=== PATIENT | female | born 1940 | race Caucasian/White ===

== ENCOUNTER 2019-01-25 21:40 | Outpatient (REF) | payer BC, SELFPAY ==
[2019-01-25 22:28] LABS: Anion Gap 11.2 mmol/L (3-11); BUN 15 mg/dL (7-18); CO2 27.8 mmol/L (21.0-32.0); CREATININE 0.66 mg/dL (0.55-1.02); Calcium 9.6 mg/dL (8.5-10.1); Chloride 105 mmol/L (98-107); Glucose 86 mg/dL (70-100); Potassium 4.4 mmol/L (3.5-5.1); Sodium 144 mmol/L (136-145)
== END 2019-01-25 22:00 ==
LOC: NCHCN 21:40
PROVIDERS: PCP Family Medicine; Visit Provider Family Medicine
DX: I10 Essential (primary) hypertension (principal)
CPT/HCPCS: 80048

== ENCOUNTER 2019-01-26 12:57 | Outpatient (REF) | payer BC, SELFPAY | END 2019-01-26 13:17 | LOC: NCHCN 12:57 | PROVIDERS: PCP Family Medicine; Visit Provider Family Medicine | DX: R69 Illness, unspecified (principal) ==

== ENCOUNTER 2019-04-01 15:25 | Outpatient (REF) | payer BC, SELFPAY | END 2019-04-01 15:45 | LOC: NCHCN 15:25 | PROVIDERS: PCP Family Medicine; Visit Provider Internal Medicine | DX: Z87.440 Personal history of urinary (tract) infections (principal) | CPT/HCPCS: 87077; 87086; 87186 ==

== ENCOUNTER 2020-02-11 21:53 | Outpatient (REF) | payer BC, SELFPAY ==
[2020-02-11 21:35] LABS: Anion Gap 8.1 mmol/L (3-11); BUN 11 mg/dL (7-18); CO2 24.9 mmol/L (21.0-32.0); CREATININE 0.74 mg/dL (0.55-1.02); Calcium 9.3 mg/dL (8.5-10.1); Calculated LDL 110 mg/dL (<100); Chloride 109 mmol/L (98-107); Cholesterol 182 mg/dL (<200); Glucose 97 mg/dL (74-106); HDL Cholesterol 55 mg/dL (40-60); Sodium 142 mmol/L (136-145); Triglyceride 87 mg/dL (<150)
== END 2020-02-11 22:13 ==
LOC: NCHCN 21:53
PROVIDERS: PCP Family Medicine; Visit Provider Family Medicine
DX: I10 Essential (primary) hypertension (principal); E78.5 Hyperlipidemia, unspecified
CPT/HCPCS: 80048; 80061

== ENCOUNTER 2020-05-01 10:06 | Outpatient (REF) | payer BC, SELFPAY ==
[2020-05-01 21:50] LABS: Anion Gap 7.8 mmol/L (3-11); BUN 10 mg/dL (7-18); CO2 28.2 mmol/L (21.0-32.0); CREATININE 0.75 mg/dL (0.55-1.02); Calcium 10.1 mg/dL (8.5-10.1); Chloride 106 mmol/L (98-107); Glucose 94 mg/dL (74-106); Potassium 3.7 mmol/L (3.5-5.1); Sodium 142 mmol/L (136-145)
== END 2020-05-01 10:26 ==
LOC: NCHCN 10:06
PROVIDERS: PCP Family Medicine; Visit Provider Registered Nurse
DX: I10 Essential (primary) hypertension (principal)
CPT/HCPCS: 80048

== ENCOUNTER 2020-05-26 15:12 | Outpatient (REF) | payer BC, SELFPAY ==
[2020-05-26 20:56] LABS: Anion Gap 9.5 mmol/L (3-11); BUN 13 mg/dL (7-18); CO2 27.5 mmol/L (21.0-32.0); CREATININE 0.95 mg/dL (0.55-1.02); Calcium 9.5 mg/dL (8.5-10.1); Chloride 104 mmol/L (98-107); Estimated GFR 57.04 (mL/min/1.73m2); Glucose 95 mg/dL (74-106); Sodium 141 mmol/L (136-145)
== END 2020-05-26 15:32 ==
LOC: NCHCN 15:12
PROVIDERS: PCP Family Medicine; Visit Provider Family Medicine
DX: I10 Essential (primary) hypertension (principal)
CPT/HCPCS: 80048

== ENCOUNTER 2020-10-20 18:29 | Outpatient (REF) | payer BC, SELFPAY ==
[2020-10-20 21:51] LABS: Anion Gap 8.4 mmol/L (3-11); BUN 5 mg/dL (7-18); CO2 28.6 mmol/L (21.0-32.0); CREATININE 0.6 mg/dL (0.55-1.02); Calcium 9.3 mg/dL (8.5-10.1); Chloride 109 mmol/L (98-107); Glucose 89 mg/dL (74-106); Potassium 4.3 mmol/L (3.5-5.1); Sodium 146 mmol/L (136-145)
== END 2020-10-20 18:30 | disposition home or self-care (01) ==
LOC: NCHCN 18:29
PROVIDERS: PCP Family Medicine; Visit Provider Family Medicine
DX: R19.7 Diarrhea, unspecified (principal)
CPT/HCPCS: 80048

== ENCOUNTER 2021-04-05 15:15 | Outpatient (REF) | payer BC, SELFPAY ==
[2021-04-05 21:44] LABS: Absolute Basophil Count 0.03 10^3/uL (0.0-0.2); Absolute Eosinophil Count 0.23 10^3/uL (0.0-0.7); Absolute Lymphocyte Count 0.91 10^3/uL (1.2-3.4); Absolute Monocyte Count 0.35 10^3/uL (0.1-0.8); Absolute Neutrophil Count 2.35 10^3/uL (1.2-6.7); Basophils % 0.8; Eosinophils % 5.9; HCT 39.2 % (36.0-46.0); HGB 12.8 g/dL (11.2-15.7); Lymphocytes % 23.5; MCH 30.3 pg (27.0-33.0); MCHC 32.7 % (32.0-36.0); MCV 92.9 fL (80-95); MPV 9.8 fL (8.0-11.0); Neutrophils % 60.8; Nucleated RBC 0 %; Platelet Count 294 10^3/uL (130-400); RBC 4.22 10^6/uL (3.93-5.22); RDW 12.6 % (11.7-14.6); RDW-SD 43.1 fL; WBC 3.87 10^3/uL (4.4-10.8)
[2021-04-05 21:48] LABS: ESR 6 mm/hr (0-30)
[2021-04-05 22:00] LABS: Anion Gap 6.7 mmol/L (3-11); BUN 12 mg/dL (7-18); CO2 28.3 mmol/L (21.0-32.0); CREATININE 0.8 mg/dL (0.55-1.02); Calcium 9.4 mg/dL (8.5-10.1); Chloride 107 mmol/L (98-107); Glucose 107 mg/dL (74-106); Potassium 3.9 mmol/L (3.5-5.1); Sodium 142 mmol/L (136-145)
== END 2021-04-05 15:16 | disposition home or self-care (01) ==
LOC: NCHCN 15:15
PROVIDERS: PCP Family Medicine; Visit Provider Family Medicine
DX: R29.898 Other symptoms and signs involving the musculoskeletal system (principal); M62.81 Muscle weakness (generalized)
CPT/HCPCS: 80048; 85652; 85025

== ENCOUNTER 2022-01-17 17:16 | Outpatient (REF) | payer BC, SELFPAY ==
[2022-01-17 15:51] LABS: Anion Gap 8.1 mmol/L (3-11); BUN 13 mg/dL (7-18); CO2 26.9 mmol/L (21.0-32.0); CREATININE 0.8 mg/dL (0.55-1.02); Calcium 9.1 mg/dL (8.5-10.1); Chloride 106 mmol/L (98-107); Glucose 95 mg/dL (74-106); Potassium 4.3 mmol/L (3.5-5.1); Sodium 141 mmol/L (136-145)
== END 2022-01-17 17:17 | disposition home or self-care (01) ==
LOC: NCHCN 17:16
PROVIDERS: PCP Family Medicine; Visit Provider Nurse Practitioner Family
DX: U07.1 COVID-19 (principal)
CPT/HCPCS: 80048

== ENCOUNTER 2023-06-06 21:09 | Outpatient (REF) | payer BC, SELFPAY ==
[2023-06-06 21:55] LABS: Vitamin D 25 Total < 5 ng/mL (30-100)
== END 2023-06-06 21:10 | disposition home or self-care (01) ==
LOC: NCHCN 21:09
PROVIDERS: PCP Family Medicine; Visit Provider Family Medicine
DX: S72.002D Fracture of unspecified part of neck of left femur, subsequent encounter for closed fracture with routine healing (principal); X58.XXXD Exposure to other specified factors, subsequent encounter
CPT/HCPCS: 82306

== ENCOUNTER 2023-07-04 15:13 | Outpatient (REF) | payer BC, SELFPAY ==
--- OUTSIDE RECORDS SUMMARY | 2023-07-04 15:16 | XMS_ITS | CCD ---
Author Name Unknown Address [address] [place] [address] [id number] Organization Unknown Address [address] [place] [address] [phone] Care Team Providers Care Water Pollution Control Inspector Name Role Phone ZARINA CRISTINA Attending Physician [phone] LEIGHANN MACIAS Er Physician [phone] ESTHELA JOHNSON (Secondary) Physician [phone] ELIZABETH Pittman Registered Nurse [phone] MISAEL Graf Registered Nurse [phone] Vital Signs Vital Sign Value Unit Date/Time Recent/Initial ? BMI (Body Mass Index) 26.89 kg/m^2 01/03/2023 05: 43 Initial VS Weight Measured 147 lbs 01/03/2023 05:43 Ini tial VS Height 62 in 01/03/2023 05:43 Initial VS BSA (Body Surface Area) 1.71 m^2 01/03/2023 0 5:43 Initial VS BP Systolic 172 mmHg 01/03/2023 05:43 Initial VS BP Diastolic 88 mmHg 01/03/2023 05:43 Initia l VS Respiratory Rate 18 bpm 01/03/2023 05:43 In itial VS Heart Rate 88 bpm 01/03/2023 05:43 Initial VS O2 % BldC Oximetry 82 % 01/03/2023 05:43 Initial VS Body Temperature 36.4 degrees 01/03/2023 05:43 In itial VS BMI (Body Mass Index) 27.25 kg/m^2 01/03/2023 13: 15 Most Recent VS Weight Measured 149 lbs 01/03/2023 13:15 Mos t Recent VS Height 62 in 01/03/2023 13:15 Most Rec ent VS BSA (Body Surface Area) 1.72 m^2 01/03/2023 1 3:15 Most Recent VS BP Systolic 170 mmHg 01/06/2023 07:20 Most Re cent VS BP Diastolic 82 mmHg 01/06/2023 07:20 Most R ecent VS Respiratory Rate 20 bpm 01/06/2023 07:[address] Recent VS Heart Rate 91 bpm 01/06/2023 07:20 Most Rec ent VS Body Temperature 36.6 degrees 01/06/2023 07:[address] Recent VS O2 % BldC Oximetry 93 % 01/06/2023 09:33 Most Recent VS Allergies Allergy Code Allergy Type Reaction Status CODEINE 0 Drug allergy UPSET STOMACH Active PCN (penicillin) 0 Drug allergy NAUSEA/VOMITING A ctive FLUOXETINE 4493 Drug allergy WEIGHT GAIN Active MELATONIN 6711 Drug allergy DIARRHEA Active Procedures Unknown or Not Available. History of Immunizations Immunization Code Date Pneumococcal conjugate PCV 13 133 COVID-19, mRNA, LNP-S, PF, 100 mcg/0.5mL dose or 50 mcg/0.25mL dose 207 08/05/2020 COVID-19, mRNA, LNP-S, PF, 100 mcg/0.5mL dose or 50 mcg/0.25mL dose 207 09/02/2020 Problems Problem Code Start Date Resolved Date Status GERD 376466765 Active Anxiety 28938626 Active HTN 82971521 Active RSV infection 41626713 Active Hypoxia 456473742 Active Cellulitis 780517811 Active Anxiety 57809276 01/03/2023 Resolved Infectious colitis 34879510 01/03/2023 Resolv ed Depression 24417150 01/03/2023 Resolved GERD 747653545 01/03/2023 Resolved Acute ischemic colitis (disorder) 93607266 Resolved OTHER SPECIFIED GENITAL PROLAPSE 22453130 Resolved Acute respiratory failure wi th hypoxia 57840489 01/03/2023 Resolved Infectious colitis 62506168 05/16/2023 Resolv ed Stress fracture of left femo ral neck 36145320004211787 05/16/2023 Resolved Femoral neck fracture 7492552 06/23/2023 Res olved Hypokalemia 71827437 05/16/2023 Resolved CYSTOCELE, MIDLINE 105594408 01/03/2023 Resolv ed RECTOCELE 26999192 01/03/2023 Resolved FEMALE STRESS INCONTINENCE 74817871 Resolved Other closed fractures of di stal end of radius (alone) 31548655 01/03/2023 Resolved HTN 75350790 01/03/2023 Resolved Results BASIC METABOLIC PANEL (BMP) - Collect Date/Time: 01/06/2023 06:50 Test Name Code Test Result Test Units Test Ref Rang e GLUCOSE 2345-7 108 mg/dL L=70 H=116 BUN 3094-0 4 mg/dL L=6 H=25 CREATININE 2160-0 0.57 mg/dL L=0.51 H=0.95 SODIUM SERUM 2951-2 141 mmol/L L=136 H=145 POTASSIUM SERUM 2823-3 3.1 mmol/L L=3.4 H=5 .2 CHLORIDE SERUM 2075-0 106 mmol/L L=96 H=110 CARBON DIOXIDE (CO2) 2028-9 27 mmol/L L=22 H=34 ANION GAP 69402-5 8.3 mmol/L CALCIUM SERUM 09722-5 8.9 mg/dL L=8.2 H=10. 2 AGE 82 years eGFR (non-Afr.Amer.) 97303-0 102 mL/min eGFR (Afr-Zambian) 59107-2 >120 mL/min BASIC METABOLIC PANEL (BMP) - Collect Date/Time: 01/05/2023 10:15 Test Name Code Test Result Test Units Test Ref Rang e GLUCOSE 2345-7 151 mg/dL L=70 H=116 BUN 3094-0 5 mg/dL L=6 H=25 CREATININE 2160-0 0.78 mg/dL L=0.51 H=0.95 SODIUM SERUM 2951-2 140 mmol/L L=136 H=145 POTASSIUM SERUM 2823-3 3.1 mmol/L L=3.4 H=5 .2 CHLORIDE SERUM 2075-0 106 mmol/L L=96 H=110 CARBON DIOXIDE (CO2) 8-9 26 mmol/L L=22 H=34 ANION GAP 56667-1 8.4 mmol/L CALCIUM SERUM 10393-0 8.4 mg/dL L=8.2 H=10. 2 AGE 82 years eGFR (non-Afr.Amer.) 17698-0 71 mL/min eGFR (Afr-Zambian) 18471-1 86 mL/min BASIC METABOLIC PANEL (BMP) - Collect Date/Time: 01/04/2023 06:50 Test Name Code Test Result Test Units Test Ref Rang e GLUCOSE 2345-7 104 mg/dL L=70 H=116 BUN 3094-0 10 mg/dL L=6 H=25 CREATININE 2160-0 0.66 mg/dL L=0.51 H=0.95 SODIUM SERUM 2951-2 143 mmol/L L=136 H=145 POTASSIUM SERUM 2823-3 3.4 mmol/L L=3.4 H=5 .2 CHLORIDE SERUM 2075-0 109 mmol/L L=96 H=110 CARBON DIOXIDE (CO2) 2028-9 25 mmol/L L=22 H=34 ANION GAP 52644-7 8.7 mmol/L CALCIUM SERUM 29624-6 9.0 mg/dL L=8.2 H=10. 2 AGE 82 years eGFR (non-Afr.Amer.) 86588-5 86 mL/min eGFR (Afr-Zambian) 84112-5 104 mL/min COMPREHENSIVE METABOLIC PANE L ([facility]) - Collect Date/Time: 01/03/2023 05:07 Test Name Code Test Result Test Units Test Ref Rang e GLUCOSE 2345-7 116 mg/dL L=70 H=116 BUN 3094-0 9 mg/dL L=6 H=25 CREATININE 2160-0 0.88 mg/dL L=0.51 H=0.95 SODIUM SERUM 2951-2 139 mmol/L L=136 H=145 POTASSIUM SERUM 2823-3 3.0 mmol/L L=3.4 H=5 .2 CHLORIDE SERUM 2075-0 105 mmol/L L=96 H=110 CARBON DIOXIDE (CO2) 2028-9 25 mmol/L L=22 H=34 ANION GAP 41843-0 8.7 mmol/L CALCIUM SERUM 38330-9 9.4 mg/dL L=8.2 H=10. 2 BILIRUBIN TOTAL 1975-2 1.1 mg/dL L=0.0 H=1 .3 ALK. PHOS. 6768-6 66 U/L L=46 H=116 SGOT (AST) 1920-8 23 U/L L=15 H=37 SGPT (ALT) 1742-6 19 U/L L=12 H=78 TOTAL PROTEIN 2885-2 7.5 gm/dL L=6.0 H=8.0 ALBUMIN 1751-7 3.9 gm/dL L=3.4 H=5.0 AGE 82 years eGFR (non-Afr.Amer.) 95307-4 62 mL/min eGFR (Afr-Zambian) 73244-2 75 mL/min CBC W/ DIFFERENTIAL* - [facility] ct Date/Time: 01/06/2023 06:50 Test Name Code Test Result Test Units Test Ref Rang e WBC 6690-2 7.23 th/cmm L=5.00 H=10.00 NEUT % 80.4 % L=40.0 H=80.0 LYMPH % 8.9 % L=10.0 H=50.0 MONO % 94345-1 6.9 % L=2.0 H=12.0 EOS % 3.0 % L=0.0 H=8.0 BASO % 0.4 % L=0.0 H=3.0 IG % 2514-8 0.4 % L=0.0 H=1.1 NRBC % 71719-3 0.0 % L=0.0 H=0.0 NEUT abs count 751-8 5.8 th/cmm L=1.6 H=8. 4 LYMPH abs count 731-0 0.6 th/cmm L=1.5 H=4 .0 MONO abs count 742-7 0.5 th/cmm L=0.2 H=1. 0 EOS abs count 711-2 0.2 th/cmm L=0.0 H=0.5 BASO abs count 704-7 0.0 th/cmm L=0.0 H=0. 2 IG abs count 08446-5 0.0 th/cmm L=0.0 H=0.1 NRBC abs count 36246-7 0.0 mil/cmm L=0.0 H=0. 0 RBC 789-8 4.11 mil/cmm L=3.90 H=5.40 HEMOGLOBIN 718-7 12.4 gm/dL L=12.0 H=16.0 HEMATOCRIT 4544-3 38 % L=37 H=47 MCV 787-2 93 fL L=82 H=92 MCH 785-6 30.2 pg L=27.0 H=31.0 MCHC 786-4 32.6 % L=32.0 H=36.0 RDW-SD 788-0 43.6 fL L=39.0 H=49.0 PLATELET COUNT 777-3 208 th/cmm L=150 H=45 0 CBC W/ DIFFERENTIAL* - [facility] ct Date/Time: 01/05/2023 10:15 Test Name Code Test Result Test Units Test Ref Rang e WBC 6690-2 7.64 th/cmm L=5.00 H=10.00 NEUT % 84.1 % L=40.0 H=80.0 LYMPH % 9.0 % L=10.0 H=50.0 MONO % 31365-4 5.6 % L=2.0 H=12.0 EOS % 0.5 % L=0.0 H=8.0 BASO % 0.4 % L=0.0 H=3.0 IG % 2514-8 0.4 % L=0.0 H=1.1 NRBC % 08733-6 0.0 % L=0.0 H=0.0 NEUT abs count 751-8 6.4 th/cmm L=1.6 H=8. 4 LYMPH abs count 731-0 0.7 th/cmm L=1.5 H=4 .0 MONO abs count 742-7 0.4 th/cmm L=0.2 H=1. 0 EOS abs count 711-2 0.0 th/cmm L=0.0 H=0.5 BASO abs count 704-7 0.0 th/cmm L=0.0 H=0. 2 IG abs count 19089-0 0.0 th/cmm L=0.0 H=0.1 NRBC abs count 16189-0 0.0 mil/cmm L=0.0 H=0. 0 RBC 789-8 3.76 mil/cmm L=3.90 H=5.40 HEMOGLOBIN 718-7 11.4 gm/dL L=12.0 H=16.0 HEMATOCRIT 4544-3 36 % L=37 H=47 MCV 787-2 95 fL L=82 H=92 MCH 785-6 30.3 pg L=27.0 H=31.0 MCHC 786-4 32.0 % L=32.0 H=36.0 RDW-SD 788-0 44.9 fL L=39.0 H=49.0 PLATELET COUNT 777-3 198 th/cmm L=150 H=45 0 CBC W/ DIFFERENTIAL* - [facility] ct Date/Time: 01/04/2023 06:50 Test Name Code Test Result Test Units Test Ref Rang e WBC 6690-2 8.25 th/cmm L=5.00 H=10.0 0 NEUT % 80.3 % L=40.0 H=80.0 LYMPH % 10.8 % L=10.0 H=50.0 MONO % 35366-5 6.4 % L=2.0 H=12.0 EOS % 1.7 % L=0.0 H=8.0 BASO % 0.4 % L=0.0 H=3.0 IG % 2514-8 0.4 % L=0.0 H=1.1 NRBC % 03504-6 0.0 % L=0.0 H=0.0 NEUT abs count 751-8 6.6 th/cmm L=1.6 H=8. 4 LYMPH abs count 731-0 0.9 th/cmm L=1.5 H=4 .0 MONO abs count 742-7 0.5 th/cmm L=0.2 H=1. 0 EOS abs count 711-2 0.1 th/cmm L=0.0 H=0.5 BASO abs count 704-7 0.0 th/cmm L=0.0 H=0. 2 IG abs count 85453-4 0.0 th/cmm L=0.0 H=0.1 NRBC abs count 06871-5 0.0 mil/cmm L=0.0 H=0. 0 RBC 789-8 4.02 mil/cmm L=3.90 H=5.40 HEMOGLOBIN 718-7 12.1 gm/dL L=12.0 H=16.0 HEMATOCRIT 4544-3 38 % L=37 H=47 MCV 787-2 94 fL L=82 H=92 MCH 785-6 30.1 pg L=27.0 H=31.0 MCHC 786-4 32.0 % L=32.0 H=36.0 RDW-SD 788-0 45.0 fL L=39.0 H=49.0 PLATELET COUNT 777-3 205 th/cmm L=150 H=45 0 CBC W/ DIFFERENTIAL* - [facility] ct Date/Time: 01/03/2023 05:07 Test Name Code Test Result Test Units Test Ref Rang e WBC 6690-2 9.57 th/cmm L=5.00 H=10.00 NEUT % 81.1 % L=40.0 H=80.0 LYMPH % 9.6 % L=10.0 H=50.0 MONO % 79422-0 6.5 % L=2.0 H=12.0 EOS % 2.1 % L=0.0 H=8.0 BASO % 0.4 % L=0.0 H=3.0 IG % 2514-8 0.3 % L=0.0 H=1.1 NRBC % 99314-9 0.0 % L=0.0 H=0.0 NEUT abs count 751-8 7.8 th/cmm L=1.6 H=8. 4 LYMPH abs count 731-0 0.9 th/cmm L=1.5 H=4 .0 MONO abs count 742-7 0.6 th/cmm L=0.2 H=1. 0 EOS abs count 711-2 0.2 th/cmm L=0.0 H=0.5 BASO abs count 704-7 0.0 th/cmm L=0.0 H=0. 2 IG abs count 46789-6 0.0 th/cmm L=0.0 H=0.1 NRBC abs count 73387-5 0.0 mil/cmm L=0.0 H=0. 0 RBC 789-8 4.67 mil/cmm L=3.90 H=5.40 HEMOGLOBIN 718-7 14.0 gm/dL L=12.0 H=16.0 HEMATOCRIT 4544-3 43 % L=37 H=47 MCV 787-2 91 fL L=82 H=92 MCH 785-6 30.0 pg L=27.0 H=31.0 MCHC 786-4 32.9 % L=32.0 H=36.0 RDW-SD 788-0 42.4 fL L=39.0 H=49.0 PLATELET COUNT 777-3 269 th/cmm L=150 H=45 0 PT PROTHROMBIN TIME* - [facility] ct Date/Time: 01/03/2023 05:07 Test Name Code Test Result Test Units Test Ref Rang e PROTIME 5902-2 10.0 seconds L=9.3 H=11.4 INR 58373-6 0.96 L=2.00 H=3.00 PTT PARTIAL THROMBOPLASTIN T JORGE* - Collect Date/Time: 01/03/2023 05:07 Test Name Code Test Result Test Units Test Ref Rang e PTT 17466-7 22.1 seconds L=24.5 H=32.8 URINALYSIS WITH REFLEX CULT IF POSITIVE* - Collect Date/Time: 01/03/2023 09:40 Test Name Code Test Result Test Units Test Ref Rang e COLLECTION MODE: 24814-4 CATH N/A Color 5778-6 STRAW N/A yellow Appearance 5767-9 CLEAR N/A clear Glucose urine 69451-6 NEGATIVE N/A negative mg /dl Bilirubin 5770-3 NEGATIVE N/A negative Ketones 2514-8 NEGATIVE N/A negative mg/dl Spec gravity 5811-5 <=1.005 N/A 1.003 - 1.03 0 pH urine 2756-5 5.5 N/A 5.0 - 7.0 Protein 04644-0 NEGATIVE N/A negative mg/dl Urobilinogen 55649-3 0.2 N/A <or= 1 EU/dl Nitrite. 5802-4 NEGATIVE N/A negative Blood 5794-3 TRACE-IN N/A negative Leukocytes. NEGATIVE N/A negative MICROSCOPIC INDICATED N/A WBCs. 96387-4 none N/A 0-5 / hpf RBCs 65757-1 10-25 N/A 0-5 / hpf Epith cells 71068-5 none N/A 0-5 / hpf Crystals none N/A none Bacteria minimal N/A none Mucus 8247-9 none N/A none Casts 68725-6 none N/A none /lpf URINALYSIS WITH REFLEX CULT IF POSITIVE* - Collect Date/Time: 01/03/2023 06:20 Test Name Code Test Result Test Units Test Ref Rang e COLLECTION MODE: 74349-9 CLEAN CATCH N/A Color 5778-6 RED N/A yellow Appearance 5767-9 CLOUDY N/A clear Glucose urine 98898-8 NEGATIVE N/A negative mg /dl Bilirubin 5770-3 SMALL N/A negative Ketones 2514-8 NEGATIVE N/A negative mg/dl Spec gravity 5811-5 1.015 N/A 1.003 - 1.03 0 pH urine 2756-5 7.0 N/A 5.0 - 7.0 Protein 51180-9 >=300 N/A negative mg/dl Urobilinogen 76935-6 0.2 N/A <or= 1 EU/dl Nitrite. 5802-4 POSITIVE N/A negative Blood 5794-3 LARGE N/A negative Leukocytes. MODERATE N/A negative MICROSCOPIC INDICATED N/A WBCs. 19335-3 >100 N/A 0-5 / hpf RBCs 22178-8 >100 N/A 0-5 / hpf Epith cells 43242-3 none N/A 0-5 / hpf Crystals none N/A none Bacteria large N/A none Mucus 8247-9 present N/A none Casts 21465-7 none N/A none /lpf Other WBC CLUMPS SEEN N/A TYPE AND SCREEN* - Collect D ate/Time: 01/03/2023 05:35 Test Name Code Test Result Test Units Test Ref Rang e Blood Group 883-9 O N/A Rh (D) 24638-4 POSITIVE N/A Antibody Screen 1005-8 NEGATIVE N/A Active Medications Medications Administered During Visit Medication Dose Units Frequency Route Date/Time of Last Dose LIDOCAINE PATCH 5% 1 EA BEDTIME TOP 0 01/05/2023 20:37 LORazepam TABLET: 0.5MG 1 MG PRN BID PO 01/03/2023 14:03 LISINOPRIL TABLET: 20MG 20 MG DAILY PO 01/06/2023 09:10 PANTOPRAZOLE TABLET: 40MG 40 MG Q7AM PO 01/06/2023 05:59 AmLODIPine TABLET: 5MG 5 MG DAILY PO 01/06/2023 09:10 POTASSIUM CHL IN NS: 20mEq/1000ML 1000 ML CONT 01/05/2023 06:03 ONDANSETRON INJ SDV: 4MG/2ML 4 MG PRN Q4H I CARPENTRY SPECIALIST 01/04/2023 14:29 LIDOCAINE PATCH REMOVAL 1 EA Q9AM TOP 01/06/2023 09:12 CefTRIAXone IVPB: 1GM/50ML 1 GM Q24H 01/04/2023 13:24 MetroNIDAZOLE IVPB PREMIX: 500MG/100ML 500 MG Q6H 01/04/2023 14:0 8 LORazepam TABLET: 0.5MG 0.5 MG PRN Q4H PO 01/06/2023 06:39 CALCIUM CARBONATE TAB CHEWAB LE UD: 500MG 500 MG PRN Q2H CHEW 01/05/2023 21:1 2 OxyCODONE TABLET no apap added: 5mg 5 MG PRN Q4H PO 01/03/2023 18:48 ONDANSETRON TABLET ORAL DISINTEGRAT: 4MG 4 MG PRN Q4H PO 01/04/2023 08:25 PROCHLORPERAZINE INJ SDV:10MG/2ML 10 MG PRN Q6 H IVP 01/04/2023 18:24 ONDANSETRON INJ SDV: 4MG/2ML 4 MG PRN Q4H I CARPENTRY SPECIALIST 01/05/2023 18:14 LACTOBACILLUS TABLET: 1BU 1 BU X1 PO 01/04/2023 17:34 LACTOBACILLUS TABLET: 1BU 1 BU DAILY PO 01/06/2023 09:10 ALBUTEROL/IPRATROP UPDRAFT:2.5/0.5MG/3ML 3 ML PRN Q4H INH 2022 16:23 POLYETHYLENE GLYCOL PACKET 3350:17GM 17 GRAMS PRN DAILY PO 01/05/2023 15:1 9 POTASSIUM CHL TABLET: 10mEq 20 MEQ X1 PO 01/05/2023 20:37 Encounters Encounter Diagnosis Diagnosis Code Start Date Infectious gastroenteritis and colitis, unspecif ied A09 01/03/2023 Social History Smoking Status Code Start Date End Date Former smoker [id number] 1967 07/10/2005 Patient Decision Aids Unknown or Not Available. Discharge Instructions You were admitted to [facility] on 01/03/2023 12:03 with a principal diagnosis of Infectious gastroenteritis and colitis, unspecified You had the following tests done:BASIC METABOLIC PANEL (BMP)CBC W/ DIFFERENTIAL*BASIC METABOLIC PANEL (BMP)CBC W/ DIFFERENTIAL*BASIC METABOLIC PANEL (BMP)CBC W/ DIFFERENTIAL*URINALYSIS WITH REFLEX CULT IF POSITIVE*URINALYSIS WITH REFLEX CULT IF POSITIVE*TYPE AND SCREEN*CBC W/ DIFFERENTIAL*COMPREHENSIVE METABOLIC PANEL (CMP)PT PROTHROMBIN TIME*PTT PARTIAL THROMBOPLASTIN TIME* You were discharged from [facility] on 01/06/2023 10:50 Should you have any questions prior to discharge, please contact a member of your healthcare team. If you have left the hospital and have any questions, please contact your primary care physician. Chief Complaint and Reason For Visit Chief Complaint Date of Onset COLITIS HYPOXIC RESPIRATORY FAILURE 12/09 Function Status Unknown or Not Available. Plan of Care Unknown or Not Available. Referral/Transition of Care Unknown or Not Available.
--- OUTSIDE RECORDS SUMMARY | 2023-07-04 15:16 | XMS_ITS | CCD ---
Author Name Unknown Address [address] [place] [address] [phone] Organization Unknown Address [address] [place] [address] [phone] Care Team Providers Care Soloist Dancer Name Role Phone ESTHELA JOHNSON Attending Physician [phone] ESTHELA JOHNSON Er Physician 3 [phone] LIZETH Duffy Registered Nurse [phone] ELIZABETH Graf Registered Nurse [phone] Vital Signs Vital Sign Value Unit Date/Time Recent/Initial ? BMI (Body Mass Index) 26.93 kg/m^2 04/17/2023 02: 45 Initial VS Weight Measured 152 lbs 04/17/2023 02:45 Ini tial VS Height 63 in 04/17/2023 02:45 Initial VS BSA (Body Surface Area) 1.75 m^2 04/17/2023 0 2:45 Initial VS BP Systolic 209 mmHg 04/17/2023 02:45 Initial VS BP Diastolic 99 mmHg 04/17/2023 02:45 Initia l VS Respiratory Rate 24 bpm 04/17/2023 02:45 In itial VS Heart Rate 103 bpm 04/17/2023 02:45 Initial VS O2 % BldC Oximetry 97 % 04/17/2023 02:45 Initial VS Body Temperature 36.7 degrees 04/17/2023 02:45 In itial VS Allergies Allergy Code Allergy Type Reaction [...] Code Start Date Resolved Date Status GERD 338892692 Active Anxiety 71504251 Active HTN 77859014 Active RSV infection 00678032 Active Hypoxia 504639092 Active Cellulitis 350938652 Active Infectious colitis 75060169 05/16/2023 Resolv ed Stress fracture of left femo ral neck 24706692733119984 05/16/2023 Resolved Femoral neck fracture 0199334 06/23/2023 Res olved Hypokalemia 78210294 05/16/2023 Resolved Results ACETAMINOPHEN* - Collect Georgi e/Time: 04/17/2023 02:50 Test Name Code Test Result Test Units Test Ref Rang e ACETAMINOPHEN 3298-7 <2.0 ug/mL L=10.0 H=20 .0 COMPREHENSIVE METABOLIC PANE L (CMP) - Collect Date/Time: 04/17/2023 02:50 Test Name Code Test Result Test Units Test Ref Rang e GLUCOSE 2345-7 129 mg/dL L=70 H=116 BUN 3094-0 12 mg/dL L=6 H=25 CREATININE 2160-0 0.69 mg/dL L=0.51 H=0.95 SODIUM SERUM 2951-2 137 mmol/L L=136 H=145 POTASSIUM SERUM 2823-3 3.1 mmol/L L=3.4 H=5 .2 CHLORIDE SERUM 2075-0 103 mmol/L L=96 H=110 CARBON DIOXIDE (CO2) 2028-9 26 mmol/L L=22 H=34 ANION GAP 37566-6 8.3 mmol/L CALCIUM SERUM 59823-1 9.9 mg/dL L=8.2 H=10. 2 BILIRUBIN TOTAL 1975-2 0.6 mg/dL L=0.0 H=1 .3 ALK. PHOS. 6768-6 219 U/L L=46 H=116 SGOT (AST) 1920-8 25 U/L L=15 H=37 SGPT (ALT) 1742-6 13 U/L L=12 H=78 TOTAL PROTEIN 2885-2 8.1 gm/dL L=6.0 H=8.0 ALBUMIN 1751-7 3.7 gm/dL L=3.4 H=5.0 AGE 82 years eGFR (non-Afr.Amer.) 85093-5 82 mL/min eGFR (Afr-Irish) 99682-8 99 mL/min CPK SERUM TOTAL* - Collect D ate/Time: 04/17/2023 02:50 Test Name Code Test Result Test Units Test Ref Rang e CPK 2157-6 56 U/L L=0 H=150 Specimen seq. RANDOM N/A MAGNESIUM SERUM* - Collect D ate/Time: 04/17/2023 02:50 Test Name Code Test Result Test Units Test Ref Rang e MAGNESIUM 02910-9 2.0 mg/dL L=1.8 H=2.4 PHOSPHORUS SERUM - Collect D ate/Time: 04/17/2023 02:50 Test Name Code Test Result Test Units Test Ref Rang e PHOSPHORUS SERUM 3.0 mg/dL L=2.2 H= 4.2 Active Medications Unknown or Not Available. Medications Administered During Visit Medication Dose Units Frequency Route Date/Time of Last Dose SODIUM CHLORIDE 0.9% 1000ML 1000 ML X1 IV 04/17/2023 03:00 ONDANSETRON INJ SDV: 4MG/2ML 8 MG X1 I AGRICULTURAL EDUCATION INSTRUCTOR 04/17/2023 03:00 DIAZEPAM TABLET: 5MG 5 MG X1 PO 04/17/2023 03:27 POTASSIUM CHL IN NS: 40mEq/1000ML 1000 ML X1 IV 04/17/2023 03:25 Encounters Encounter Diagnosis Diagnosis Code Start Date Spasm [id number] 04/17/2023 Social History Smoking Status Code Start Date End Date Former smoker [id number] 1967 07/10/2005 Patient Decision Aids Unknown or Not Available. Discharge Instructions You were admitted to [facility] on 04/17/2023 02:35 with a principal diagnosis of Other muscle spasm You had the following tests done:ACETAMINOPHEN*COMPREHENSIVE METABOLIC PANEL (CMP)CPK SERUM TOTAL*MAGNESIUM SERUM*PHOSPHORUS SERUM You were discharged from [facility] on 04/17/2023 08:33 Should you have any questions prior to discharge, please contact a member of your healthcare team. If you have left the hospital and have any questions, please contact your primary care physician. Chief Complaint and Reason For Visit Chief Complaint Date of Onset PELVIC PAIN Function Status Unknown or Not Available. Plan of Care Unknown or Not Available. Referral/Transition of Care Unknown or Not Available.
--- OUTSIDE RECORDS SUMMARY | 2023-07-04 15:16 | XMS_ITS | CCD ---
Author Name Unknown Address [address] [place] [address] [id number] Organization Unknown Address [address] [place] [address] [phone] Care Team Providers Care Debt Counselor Name Role Phone CHACORTA JOSHUA Attending Physician [phone] CHACORTA JOSHUA Er Physician [phone] CRISTO Howard Registered Nurse [phone] ARVIND Hanson Registered Nurse [phone] Vital Signs Vital Sign Value Unit Date/Time Recent/Initial ? BMI (Body Mass Index) 21.63 kg/m^2 04/06/2023 08: 25 Initial VS Weight Measured 126 lbs 04/06/2023 08:25 Ini tial VS Height 64 in 04/06/2023 08:25 Initial VS BSA (Body Surface Area) 1.61 m^2 04/06/2023 0 8:25 Initial VS BP Systolic 174 mmHg 04/06/2023 08:25 Initial VS BP Diastolic 98 mmHg 04/06/2023 08:25 Initia l VS Respiratory Rate 18 bpm 04/06/2023 08:25 In itial VS Heart Rate 96 bpm 04/06/2023 08:25 Initial VS O2 % BldC Oximetry 96 % 04/06/2023 08:25 Initial VS Body Temperature 36.7 degrees 04/06/2023 08:25 In itial VS BP Systolic 191 mmHg 04/06/2023 15:22 Most Re cent VS BP Diastolic 96 mmHg 04/06/2023 15:22 Most R ecent VS Respiratory Rate 16 bpm 04/06/2023 15:[address] Recent VS Heart Rate 92 bpm 04/06/2023 15:22 Most Rec ent VS O2 % BldC Oximetry 94 % 04/06/2023 15:22 Most Recent VS Allergies Allergy Code Allergy [...] 100 mcg/0.5mL dose or 50 mcg/0.25mL dose 08/05/2020 COVID-19, mRNA, LNP-S, PF, 100 mcg/0.5mL dose or 50 mcg/0.25mL dose 09/02/2020 Problems Problem Code Start Date Resolved Date Status GERD 334357968 Active Anxiety 99511739 Active HTN 50510437 Active RSV infection 05652228 Active Hypoxia 945832617 Active Cellulitis 296212980 Active Infectious colitis 63403577 05/16/2023 Resolv ed Stress fracture of left femo ral neck 91704626966642184 05/16/2023 Resolved Femoral neck fracture 1943948 06/23/2023 Res olved Hypokalemia 42693422 05/16/2023 Resolved Results COMPREHENSIVE METABOLIC PANE L (CMP) - Collect Date/Time: 04/06/2023 09:10 Test Name Code Test Result Test Units Test Ref Rang e GLUCOSE 2345-7 115 mg/dL L=70 H=116 BUN 3094-0 8 mg/dL L=6 H=25 CREATININE 2160-0 0.73 mg/dL L=0.51 H=0.95 SODIUM SERUM 2951-2 142 mmol/L L=136 H=145 POTASSIUM SERUM 2823-3 3.1 mmol/L L=3.4 H=5 .2 CHLORIDE SERUM 2075-0 104 mmol/L L=96 H=110 CARBON DIOXIDE (CO2) 2028-9 29 mmol/L L=22 H=34 ANION GAP 29792-2 8.8 mmol/L CALCIUM SERUM 00459-6 9.2 mg/dL L=8.2 H=10. 2 BILIRUBIN TOTAL 1975-2 1.1 mg/dL L=0.0 H=1 .3 ALK. PHOS. 6768-6 158 U/L L=46 H=116 SGOT (AST) 1920-8 21 U/L L=15 H=37 SGPT (ALT) 1742-6 13 U/L L=12 H=78 TOTAL PROTEIN 2885-2 7.3 gm/dL L=6.0 H=8.0 ALBUMIN 1751-7 3.3 gm/dL L=3.4 H=5.0 AGE 82 years eGFR (non-Afr.Amer.) 99687-9 77 mL/min eGFR (Afr-Tristanian) 23118-3 93 mL/min CBC W/ DIFFERENTIAL* - [facility] ct Date/Time: 04/06/2023 09:10 Test Name Code Test Result Test Units Test Ref Rang e WBC 6690-2 8.06 th/cmm L=5.00 H=10.00 NEUT % 81.0 % L=40.0 H=80.0 LYMPH % 6.8 % L=10.0 H=50.0 MONO % 68991-6 7.7 % L=2.0 H=12.0 EOS % 3.5 % L=0.0 H=8.0 BASO % 0.6 % L=0.0 H=3.0 IG % 2514-8 0.4 % L=0.0 H=1.1 NRBC % 85793-7 0.0 % L=0.0 H=0.0 NEUT abs count 751-8 6.5 th/cmm L=1.6 H=8. 4 LYMPH abs count 731-0 0.6 th/cmm L=1.5 H=4 .0 MONO abs count 742-7 0.6 th/cmm L=0.2 H=1. 0 EOS abs count 711-2 0.3 th/cmm L=0.0 H=0.5 BASO abs count 704-7 0.1 th/cmm L=0.0 H=0. 2 IG abs count 35925-5 0.0 th/cmm L=0.0 H=0.1 NRBC abs count 60398-9 0.0 mil/cmm L=0.0 H=0. 0 RBC 789-8 4.53 mil/cmm L=3.90 H=5.40 HEMOGLOBIN 718-7 13.2 gm/dL L=12.0 H=16.0 HEMATOCRIT 4544-3 41 % L=37 H=47 MCV 787-2 91 fL L=82 H=92 MCH 785-6 29.1 pg L=27.0 H=31.0 MCHC 786-4 32.0 % L=32.0 H=36.0 RDW-SD 788-0 43.9 fL L=39.0 H=49.0 PLATELET COUNT 777-3 310 th/cmm L=150 H=45 0 BANDS % 1 Giant plts present N/A METAS % 1 N/A MYELOS % 1 N/A Toxic gran 1+ N/A Smudge cells 1+ N/A Schistocytes 1+ N/A URINALYSIS WITH REFLEX CULT IF POSITIVE* - Collect Date/Time: 04/06/2023 10:40 Test Name Code Test Result Test Units Test Ref Rang e COLLECTION MODE: 00331-1 CLEAN CATCH N/A Color 5778-6 YELLOW N/A yellow Appearance 5767-9 CLEAR N/A clear Glucose urine 03774-3 NEGATIVE N/A negative mg /dl Bilirubin 5770-3 NEGATIVE N/A negative Ketones 2514-8 TRACE N/A negative mg/dl Spec gravity 5811-5 1.020 N/A 1.003 - 1.03 0 pH urine 2756-5 6.0 N/A 5.0 - 7.0 Protein 53440-5 TRACE N/A negative mg/dl Urobilinogen 52930-5 0.2 N/A <or= 1 EU/dl Nitrite. 5802-4 NEGATIVE N/A negative Blood 5794-3 NEGATIVE N/A negative Leukocytes. NEGATIVE N/A negative MICROSCOPIC NOT INDICAT N/A Active Medications Medication Code Dose Units Frequency Route Modificatio n Start Date/Time ER-ONDANSETRON ODT 4 PACK: 4MG 432516 4 MG PRN Q8H PO 04/06/2023 14:54 Medications Administered During Visit Medication Dose Units Frequency Route Date/Time of Last Dose ACETAMINOPHEN INJ IVPB: 1000MG/100ML 1000 MG X1 IVPB 04/06/2023 09:2 8 FentaNYL INJ SYRINGE: 50MCG/ML 25 MCG X1 IVP 04/06/2023 09:2 8 ONDANSETRON INJ SDV: 4MG/2ML 4 MG X1 I BOLT LOADER 04/06/2023 09:28 POTASSIUM CHL TABLET: 20mEq 20 MEQ X1 PO 04/06/2023 11:35 KETOROLAC INJ SDV: 30MG/1ML 15 MG X1 IV P 04/06/2023 12:12 LIDOCAINE PATCH 5% 1 PATCH X1 TRANSDERMAL 04/06/2023 12:12 OxyCODONE TABLET no apap added: 5mg 5 MG X1 PO 04/06/2023 12:5 1 ONDANSETRON TABLET ORAL DISINTEGRAT: 4MG 4 MG X1 PO 04/06/2023 14:20 ER-ONDANSETRON ODT 4 PACK: 4MG 4 MG PRN Q8H PO 04/06/2023 15:0 0 Encounters Encounter Diagnosis Diagnosis Code Start Date Other specified fracture of right pubis, initial encounter for closed fracture [id number] 04/06/2023 Social History Smoking Status Code Start Date End Date Former smoker [id number] 1969 07/10/2005 Patient Decision Aids Unknown or Not Available. Discharge Instructions You were admitted to [facility] on 04/06/2023 08:13 with a principal diagnosis of Other specified fracture of right pubis, initial encounter for closed fracture You had the following tests done:URINALYSIS WITH REFLEX CULT IF POSITIVE*CBC W/ DIFFERENTIAL*COMPREHENSIVE METABOLIC PANEL (CMP) You were discharged from [facility] on 04/06/2023 15:28 Should you have any questions prior to discharge, please contact a member of your healthcare team. If you have left the hospital and have any questions, please contact your primary care physician. Chief Complaint and Reason For Visit Chief Complaint Date of Onset RIGHT LEG PAIN Function Status Unknown or Not Available. Plan of Care Unknown or Not Available. Referral/Transition of Care Unknown or Not Available.
--- OUTSIDE RECORDS SUMMARY | 2023-07-04 15:16 | XMS_ITS | CCD ---
Author Name Unknown Address [address] [place] [address] [phone] Organization Unknown Address [address] [place] [address] [phone] Care Team Providers Care Health Sciences Dean Name Role Phone KEVIN GENARO Alex Attending Physician [phone] Vital Signs Unknown or Not Available. Allergies Allergy Code Allergy Type Reaction Status [...] Code Start Date Resolved Date Status GERD 589357640 Active Anxiety 34556672 Active HTN 48377968 Active RSV infection 73866722 Active Hypoxia 611292569 Active Cellulitis 727417429 Active Infectious colitis 41279201 05/16/2023 [facility] ed Stress fracture of left femo ral neck 22579926529642591 05/16/2023 Resolved Femoral neck fracture 4206830 06/23/2023 Res olved Hypokalemia 51816315 05/16/2023 Resolved Results Unknown or Not Available. Active Medications Medication Code Dose Units Frequency Route Modificatio n Start Date/Time Keflex 500MG Oral Capsule 343477 1 CAPSULE FOUR TIMES A DAY ORAL 06/23/2023 13:48 Prescription Detail TAKE 1 CAPSULE ORAL FOUR TIMES A DAY X5 DAYS Potassium Chloride 20MEQ Oral Tablet, Extended Release 4367987 20 MEQ DAILY ORAL 13:47 Prescription Detail TAKE 20 MEQ ORAL DAILY Lisinopril 20MG Oral Tablet 522315 40 MILLIGRAMS DAILY ORAL 023 13:42 Prescription Detail TAKE 40 MILLIGRAMS ORAL DAILY Xarelto 10MG Oral Tablet 5749796 1 TABLET DAILY ORAL 05/25/20 16:02 Prescription Detail TAKE 1 TABLET ORAL DAILY AT 5 PM oxyCODONE HCl 5MG Oral Tablet 3758052 5 MILLIGRAMS NEEDED ORAL 14:42 Prescription Detail TAKE 5 MILLIGRAMS ORAL NEEDED Acetaminophen 500MG Oral Capsule 245866 2 TABLET NEEDED EVERY 6 HOURS ORAL 05/25/2023 14:41 Prescription Detail TAKE 2 TABLET ORAL NEEDED EVERY 6 DOE RS Meloxicam 15MG Oral Tablet 905399 15 MILLIGRAMS NEEDED DAILY ORAL 05/25/2023 14:41 Prescription Detail TAKE 15 MILLIGRAMS ORAL NEEDED DAILY Omeprazole 40MG Oral Capsule, Delayed Release 833716 40 MILLIGRAMS DAILY ORAL 14:41 Prescription Detail TAKE 40 MILLIGRAMS ORAL DAILY Ondansetron 4MG Oral Tablet, Disintegrating 964362 1 TABLET NEEDED EVERY 6 HOURS ORAL 04/06/2023 12:47 Prescription Detail TAKE 1 TABLET ORAL NEEDED EVERY 6 DOE RS FOR Nausea/Vomiting amLODIPine Besylate 5MG Oral Tablet 550222 5 MILLIGRAMS DAILY ORAL 023 09:50 Prescription Detail TAKE 5 MILLIGRAMS ORAL DAILY Imitrex 100MG Oral Tablet 683377 100 MILLIGRAMS NEEDED ORAL 023 09:50 Prescription Detail TAKE 100 MILLIGRAMS ORAL NEEDED LORazepam 1MG Oral Tablet 047620 0.5 MILLIGRAMS NEEDED TWICE DAILY ORAL 01/06/2023 09:50 Prescription Detail TAKE 0.5 MILLIGRAMS ORAL NEEDED TWICE DAILY Medications Administered During Visit Unknown or Not Available. Encounters Encounter Diagnosis Diagnosis Code Start Date Encounter for other specified aftercare [id number] 02/09/2023 Social History Smoking Status Code Start Date End Date Former smoker [id number] 1967 07/10/2005 Patient Decision Aids Unknown or Not Available. Discharge Instructions You were admitted to [facility] on 02/09/2023 13:11 with a principal diagnosis of Encounter for other specified aftercare You were discharged from [facility] on 02/09/2023 11:08 Should you have any questions prior to discharge, please contact a member of your healthcare team. If you have left the hospital and have any questions, please contact your primary care physician. Chief Complaint and Reason For Visit Unknown or Not Available. Function Status Unknown or Not Available. Plan of Care Unknown or Not Available. Referral/Transition of Care Unknown or Not Available.
--- OUTSIDE RECORDS SUMMARY | 2023-07-04 15:16 | XMS_ITS | CCD ---
Author Name Unknown Address [address] [place] [address] [phone] Organization Unknown Address [address] [place] [address] [phone] Care Team Providers Care Safety Consultant Name Role Phone WOODY SUAREZ Attending Physician [phone] WOODY SUAREZ Er Physician [phone] CHELA Hanson Registered Nurse [phone] Vital Signs Vital Sign Value Unit Date/Time Recent/Initial ? BMI (Body Mass Index) 25.23 kg/m^2 04/12/2023 02: 24 Initial VS Weight Measured 147 lbs 04/12/2023 02:24 Ini tial VS Height 64 in 04/12/2023 02:24 Initial VS BSA (Body Surface Area) 1.74 m^2 04/12/2023 0 2:24 Initial VS BP Systolic 206 mmHg 04/12/2023 02:24 Initial VS BP Diastolic 81 mmHg 04/12/2023 02:24 Initia l VS Respiratory Rate 18 bpm 04/12/2023 02:24 In itial VS Heart Rate 85 bpm 04/12/2023 02:24 Initial VS O2 % BldC Oximetry 92 % 04/12/2023 02:24 Initial VS Body Temperature 36.3 degrees 04/12/2023 02:24 In itial VS BP Systolic 182 mmHg 04/12/2023 03:53 Most Re cent VS BP Diastolic 89 mmHg 04/12/2023 03:53 Most R ecent VS Respiratory Rate 18 bpm 04/12/2023 03:[address] Recent VS Heart Rate 82 bpm 04/12/2023 03:53 Most Rec ent VS O2 % BldC Oximetry 93 % 04/12/2023 03:53 Most Recent VS Allergies Allergy Code Allergy [...] Code Start Date Resolved Date Status GERD 785229522 Active Anxiety 26947852 Active HTN 08354439 Active RSV infection 96524364 Active Hypoxia 012794975 Active Cellulitis 945315655 Active Infectious colitis 29431187 05/16/2023 Resolv ed Stress fracture of left femo ral neck 49247795429847204 05/16/2023 Resolved Femoral neck fracture 3042535 06/23/2023 Res olved Hypokalemia 04665834 05/16/2023 Resolved Results Unknown or Not Available. Active Medications Medication Code Dose Units Frequency Route Modificatio n Start Date/Time Keflex 500MG Oral Capsule 371197 1 CAPSULE FOUR TIMES A DAY ORAL 06/23/2023 13:48 Prescription Detail TAKE 1 CAPSULE ORAL FOUR TIMES A DAY X5 DAYS Potassium Chloride 20MEQ Oral Tablet, Extended Release 0699521 20 MEQ DAILY ORAL 13:47 Prescription Detail TAKE 20 MEQ ORAL DAILY Lisinopril 20MG Oral Tablet 492391 40 MILLIGRAMS DAILY ORAL 023 13:42 Prescription Detail TAKE 40 MILLIGRAMS ORAL DAILY Xarelto 10MG Oral Tablet 9258373 1 TABLET DAILY ORAL 05/25/20 23 16:02 Prescription Detail TAKE 1 TABLET ORAL DAILY AT 5 PM oxyCODONE HCl 5MG Oral Tablet 5633999 5 MILLIGRAMS NEEDED ORAL 14:42 Prescription Detail TAKE 5 MILLIGRAMS ORAL NEEDED Acetaminophen 500MG Oral Capsule 493471 2 TABLET NEEDED EVERY 6 HOURS ORAL 05/25/2023 14:41 Prescription Detail TAKE 2 TABLET ORAL NEEDED EVERY 6 DOE RS Meloxicam 15MG Oral Tablet 527546 15 MILLIGRAMS NEEDED DAILY ORAL 05/25/2023 14:41 Prescription Detail TAKE 15 MILLIGRAMS ORAL NEEDED DAILY Omeprazole 40MG Oral Capsule, Delayed Release 845236 40 MILLIGRAMS DAILY ORAL 14:41 Prescription Detail TAKE 40 MILLIGRAMS ORAL DAILY Ondansetron 4MG Oral Tablet, Disintegrating 149216 1 TABLET NEEDED EVERY 6 HOURS ORAL 04/06/2023 12:47 Prescription Detail TAKE 1 TABLET ORAL NEEDED EVERY 6 DOE RS FOR Nausea/Vomiting amLODIPine Besylate 5MG Oral Tablet 626688 5 MILLIGRAMS DAILY ORAL 023 09:50 Prescription Detail TAKE 5 MILLIGRAMS ORAL DAILY Imitrex 100MG Oral Tablet 065586 100 MILLIGRAMS NEEDED ORAL 023 09:50 Prescription Detail TAKE 100 MILLIGRAMS ORAL NEEDED LORazepam 1MG Oral Tablet 031534 0.5 MILLIGRAMS NEEDED TWICE DAILY ORAL 01/06/2023 09:50 Prescription Detail TAKE 0.5 MILLIGRAMS ORAL NEEDED TWICE DAILY Medications Administered During Visit Medication Dose Units Frequency Route Date/Time of Last Dose OxyCODONE TABLET no apap added: 5mg 5 MG X1 PO 04/12/2023 02:46 OxyCODONE TABLET no apap added: 5mg 5 MG X1 PO 04/12/2023 02:48 Encounters Encounter Diagnosis Diagnosis Code Start Date Fracture of pubis 28765362 04/12/2023 Social History Smoking Status Code Start Date End Date Former smoker [id number] 1967 07/10/2005 Patient Decision Aids Unknown or Not Available. Discharge Instructions You were admitted to [facility] on 04/12/2023 01:56 with a principal diagnosis of Other specified fracture of right pubis, subsequent encounter for fracture with routine healing You were discharged from [facility] on 04/12/2023 03:53 Should you have any questions prior to discharge, please contact a member of your healthcare team. If you have left the hospital and have any questions, please contact your primary care physician. Chief Complaint and Reason For Visit Chief Complaint Date of Onset PAIN Function Status Unknown or Not Available. Plan of Care Unknown or Not Available. Referral/Transition of Care Unknown or Not Available.
--- OUTSIDE RECORDS SUMMARY | 2023-07-04 15:16 | XMS_ITS | CCD ---
Author Name Unknown Address [address] [place] [address] [phone] Organization Unknown Address [address] [place] [address] [phone] Care Team Providers Care Horse Groomer Name Role Phone ZARINA CRISTINA Attending Physician [phone] Vital Signs Unknown or Not Available. Allergies [...] Code Start Date Resolved Date Status GERD 793152448 Active Anxiety 67553405 Active HTN 09342378 Active RSV infection 49537732 Active Hypoxia 019986652 Active Cellulitis 174776563 Active Anxiety 92234612 01/03/2023 Resolved Infectious colitis 31720086 01/03/2023 Resolv ed Depression 97748163 01/03/2023 Resolved GERD 681705258 01/03/2023 Resolved Acute ischemic colitis (disorder) 88497741 Resolved OTHER SPECIFIED GENITAL PROLAPSE 90087585 Resolved Acute respiratory failure wi th hypoxia 51291817 01/03/2023 Resolved Infectious colitis 79684975 05/16/2023 Resolv ed Stress fracture of left femo ral neck 54332024396165192 05/16/2023 Resolved Femoral neck fracture 9105368 06/23/2023 Res olved Hypokalemia 49889440 05/16/2023 Resolved CYSTOCELE, MIDLINE 859004944 01/03/2023 Resolv ed RECTOCELE 78207213 01/03/2023 Resolved FEMALE STRESS INCONTINENCE 34055297 Resolved Other closed fractures of di stal end of radius (alone) 37085328 01/03/2023 Resolved HTN 67448736 01/03/2023 Resolved Results Unknown or Not Available. Active Medications Medication Code Dose Units Frequency Route Modificatio n Start Date/Time Keflex 500MG Oral Capsule 700354 1 CAPSULE FOUR TIMES A DAY ORAL 06/23/2023 13:48 Prescription Detail TAKE 1 CAPSULE ORAL FOUR TIMES A DAY X5 DAYS Potassium Chloride 20MEQ Oral Tablet, Extended Release 8711337 20 MEQ DAILY ORAL 13:47 Prescription Detail TAKE 20 MEQ ORAL DAILY Lisinopril 20MG Oral Tablet 190368 40 MILLIGRAMS DAILY ORAL 023 13:42 Prescription Detail TAKE 40 MILLIGRAMS ORAL DAILY Xarelto 10MG Oral Tablet 8484819 1 TABLET DAILY ORAL 05/25/20 16:02 Prescription Detail TAKE 1 TABLET ORAL DAILY AT 5 PM oxyCODONE HCl 5MG Oral Tablet 1206667 5 MILLIGRAMS NEEDED ORAL 14:42 Prescription Detail TAKE 5 MILLIGRAMS ORAL NEEDED Acetaminophen 500MG Oral Capsule 343477 2 TABLET NEEDED EVERY 6 HOURS ORAL 05/25/2023 14:41 Prescription Detail TAKE 2 TABLET ORAL NEEDED EVERY 6 DOE RS Meloxicam 15MG Oral Tablet 004628 15 MILLIGRAMS NEEDED DAILY ORAL 05/25/2023 14:41 Prescription Detail TAKE 15 MILLIGRAMS ORAL NEEDED DAILY Omeprazole 40MG Oral Capsule, Delayed Release 680793 40 MILLIGRAMS DAILY ORAL 14:41 Prescription Detail TAKE 40 MILLIGRAMS ORAL DAILY Ondansetron 4MG Oral Tablet, Disintegrating 207784 1 TABLET NEEDED EVERY 6 HOURS ORAL 04/06/2023 12:47 Prescription Detail TAKE 1 TABLET ORAL NEEDED EVERY 6 DOE RS FOR Nausea/Vomiting amLODIPine Besylate 5MG Oral Tablet 742102 5 MILLIGRAMS DAILY ORAL 023 09:50 Prescription Detail TAKE 5 MILLIGRAMS ORAL DAILY Imitrex 100MG Oral Tablet 606534 100 MILLIGRAMS NEEDED ORAL 023 09:50 Prescription Detail TAKE 100 MILLIGRAMS ORAL NEEDED LORazepam 1MG Oral Tablet 386250 0.5 MILLIGRAMS NEEDED TWICE DAILY ORAL 01/06/2023 09:50 Prescription Detail TAKE 0.5 MILLIGRAMS ORAL NEEDED TWICE DAILY Medications Administered During Visit Unknown or Not Available. Encounters Encounter Diagnosis Diagnosis Code Start Date Infectious gastroenteritis and colitis, unspecif ied A09 01/03/2023 Social History Smoking Status Code Start Date End Date Former smoker [id number] 1967 07/10/2005 Patient Decision Aids Unknown or Not Available. Discharge Instructions You were admitted to [facility] on 01/03/2023 00:57 with a principal diagnosis of Infectious gastroenteritis and colitis, unspecified You were discharged from [facility] on 01/06/2023 00:58 Should you have any questions prior to [...]
--- OUTSIDE RECORDS SUMMARY | 2023-07-04 15:16 | XMS_ITS | CCD ---
Author Name Unknown Address [address] [place] [address] [phone] Organization Unknown Address [address] [place] [address] [phone] Care Team Providers Care Technical Support Representative Name Role Phone KEVIN GENARO E Attending Physician [phone] Vital Signs Unknown or Not Available. Allergies Allergy Code Allergy Type Reaction Status CODEINE 0 Drug allergy UPSET STOMACH Active PCN (penicillin) 0 Drug allergy NAUSEA/VOMITING A ctive MELATONIN 6711 Drug allergy DIARRHEA Active Procedures Unknown or Not Available. History of Immunizations Immunization Code Date Pneumococcal conjugate PCV 13 133 COVID-19, mRNA, LNP-S, PF, 100 mcg/0.5mL dose or 50 mcg/0.25mL dose 207 08/05/2020 COVID-19, mRNA, LNP-S, PF, 100 mcg/0.5mL dose or 50 mcg/0.25mL dose 207 09/02/2020 Problems Problem Code Start Date Resolved Date Status GERD 568950399 Active Anxiety 64280153 Active HTN 60409501 Active RSV infection 03340577 Active Hypoxia 332161466 Active Cellulitis 499082134 Active Anxiety 68791870 01/03/2023 Resolved Infectious colitis 58873853 01/03/2023 Resolv ed Depression 20759553 01/03/2023 Resolved GERD 260879377 01/03/2023 Resolved Acute ischemic colitis (disorder) 23449718 Resolved OTHER SPECIFIED GENITAL PROLAPSE 49711838 Resolved Acute respiratory failure wi th hypoxia 32611686 01/03/2023 Resolved Infectious colitis 36099250 05/16/2023 Resolv ed Stress fracture of left femo ral neck 94330592468106735 05/16/2023 Resolved Femoral neck fracture 5563819 06/23/2023 Res olved Hypokalemia 30147851 05/16/2023 Resolved CYSTOCELE, MIDLINE 050747581 01/03/2023 Resolv ed RECTOCELE 89750366 01/03/2023 Resolved FEMALE STRESS INCONTINENCE 96850968 3 Resolved Other closed fractures of di stal end of radius (alone) 39791505 01/03/2023 Resolved HTN 08182286 01/03/2023 Resolved Results Unknown or Not Available. Active Medications Medication Code Dose Units Frequency Route Modificatio n Start Date/Time Keflex 500MG Oral Capsule 070294 1 CAPSULE FOUR TIMES A DAY ORAL 06/23/2023 13:48 Prescription Detail TAKE 1 CAPSULE ORAL FOUR TIMES A DAY X5 DAYS Potassium Chloride 20MEQ Oral Tablet, Extended Release 8103042 20 MEQ DAILY ORAL 13:47 Prescription Detail TAKE 20 MEQ ORAL DAILY Lisinopril 20MG Oral Tablet 412289 40 MILLIGRAMS DAILY ORAL 023 13:42 Prescription Detail TAKE 40 MILLIGRAMS ORAL DAILY Xarelto 10MG Oral Tablet 2093943 1 TABLET DAILY ORAL 05/25/20 16:02 Prescription Detail TAKE 1 TABLET ORAL DAILY AT 5 PM oxyCODONE HCl 5MG Oral Tablet 6575167 5 MILLIGRAMS NEEDED ORAL 14:42 Prescription Detail TAKE 5 MILLIGRAMS ORAL NEEDED Acetaminophen 500MG Oral Capsule 685171 2 TABLET NEEDED EVERY 6 HOURS ORAL 05/25/2023 14:41 Prescription Detail TAKE 2 TABLET ORAL NEEDED EVERY 6 DOE RS Meloxicam 15MG Oral Tablet 049978 15 MILLIGRAMS NEEDED DAILY ORAL 05/25/2023 14:41 Prescription Detail TAKE 15 MILLIGRAMS ORAL NEEDED DAILY Omeprazole 40MG Oral Capsule, Delayed Release 402955 40 MILLIGRAMS DAILY ORAL 14:41 Prescription Detail TAKE 40 MILLIGRAMS ORAL DAILY Ondansetron 4MG Oral Tablet, Disintegrating 243441 1 TABLET NEEDED EVERY 6 HOURS ORAL 04/06/2023 12:47 Prescription Detail TAKE 1 TABLET ORAL NEEDED EVERY 6 DOE RS FOR Nausea/Vomiting amLODIPine Besylate 5MG Oral Tablet 738379 5 MILLIGRAMS DAILY ORAL 023 09:50 Prescription Detail TAKE 5 MILLIGRAMS ORAL DAILY Imitrex 100MG Oral Tablet 332509 100 MILLIGRAMS NEEDED ORAL 023 09:50 Prescription Detail TAKE 100 MILLIGRAMS ORAL NEEDED LORazepam 1MG Oral Tablet 548575 0.5 MILLIGRAMS NEEDED TWICE DAILY ORAL 01/06/2023 09:50 Prescription Detail TAKE 0.5 MILLIGRAMS ORAL NEEDED TWICE DAILY Medications Administered During Visit Unknown or Not Available. Encounters Encounter Diagnosis Diagnosis Code Start Date Encounter for other specified aftercare [id number] 10/25/2022 Social History Smoking Status Code Start Date End Date Former smoker [id number] 1967 07/10/2005 Patient Decision Aids Unknown or Not Available. Discharge Instructions You were admitted to [facility] on 10/25/2022 15:40 with a principal diagnosis of Encounter for other specified aftercare You were discharged from [facility] on 10/25/2022 15:40 Should you have any questions prior to [...]
--- OUTSIDE RECORDS SUMMARY | 2023-07-04 15:16 | XMS_ITS | CCD ---
Author Name Unknown Address [address] [place] [address] [phone] Organization Unknown Address [address] [place] [address] [phone] Care Team Providers Care Gate Technician Name Role Phone KEVIN GENARO Alex Attending Physician [phone] Vital Signs Unknown or Not Available. Allergies [...] Code Start Date Resolved Date Status GERD 664567898 Active Anxiety 77758804 Active HTN 93108004 Active RSV infection 14174388 Active Hypoxia 899112727 Active Cellulitis 400958351 Active Infectious colitis 48303273 05/16/2023 [facility] ed Stress fracture of left femo ral neck [id number] 05/16/2023 Resolved Femoral neck fracture 3165568 06/23/2023 Res olved Hypokalemia 90088961 05/16/2023 Resolved Results Unknown or Not Available. Active Medications Medication Code Dose Units Frequency Route Modificatio n Start Date/Time Keflex 500MG Oral Capsule 590467 1 CAPSULE FOUR TIMES A DAY ORAL 06/23/2023 13:48 Prescription Detail TAKE 1 CAPSULE ORAL FOUR TIMES A DAY X5 DAYS Potassium Chloride 20MEQ Oral Tablet, Extended Release 0778805 20 MEQ DAILY ORAL 13:47 Prescription Detail TAKE 20 MEQ ORAL DAILY Lisinopril 20MG Oral Tablet 064319 40 MILLIGRAMS DAILY ORAL 023 13:42 Prescription Detail TAKE 40 MILLIGRAMS ORAL DAILY Xarelto 10MG Oral Tablet 7156536 1 TABLET DAILY ORAL 05/25/20 16:02 Prescription Detail TAKE 1 TABLET ORAL DAILY AT 5 PM oxyCODONE HCl 5MG Oral Tablet 5671068 5 MILLIGRAMS NEEDED ORAL 14:42 Prescription Detail TAKE 5 MILLIGRAMS ORAL NEEDED Acetaminophen 500MG Oral Capsule 237751 2 TABLET NEEDED EVERY 6 HOURS ORAL 05/25/2023 14:41 Prescription Detail TAKE 2 TABLET ORAL NEEDED EVERY 6 DOE RS Meloxicam 15MG Oral Tablet 342437 15 MILLIGRAMS NEEDED DAILY ORAL 05/25/2023 14:41 Prescription Detail TAKE 15 MILLIGRAMS ORAL NEEDED DAILY Omeprazole 40MG Oral Capsule, Delayed Release 993437 40 MILLIGRAMS DAILY ORAL 14:41 Prescription Detail TAKE 40 MILLIGRAMS ORAL DAILY Ondansetron 4MG Oral Tablet, Disintegrating 402458 1 TABLET NEEDED EVERY 6 HOURS ORAL 04/06/2023 12:47 Prescription Detail TAKE 1 TABLET ORAL NEEDED EVERY 6 DOE RS FOR Nausea/Vomiting amLODIPine Besylate 5MG Oral Tablet 049122 5 MILLIGRAMS DAILY ORAL 023 09:50 Prescription Detail TAKE 5 MILLIGRAMS ORAL DAILY Imitrex 100MG Oral Tablet 578252 100 MILLIGRAMS NEEDED ORAL 023 09:50 Prescription Detail TAKE 100 MILLIGRAMS ORAL NEEDED LORazepam 1MG Oral Tablet 362617 0.5 MILLIGRAMS NEEDED TWICE DAILY ORAL 01/06/2023 09:50 Prescription Detail TAKE 0.5 MILLIGRAMS ORAL NEEDED TWICE DAILY Medications Administered During Visit Unknown or Not Available. Encounters Encounter Diagnosis Diagnosis Code Start Date Other forms of dyspnea R0609 3 Social History Smoking Status Code Start Date End Date Former smoker [id number] 1969 07/10/2005 Patient Decision Aids Unknown or Not Available. Discharge Instructions You were admitted to [facility] on 02/21/2023 13:22 with a principal diagnosis of Other forms of dyspnea You were discharged from [facility] on 02/21/2023 13:22 Should you have any questions prior to [...]
--- OUTSIDE RECORDS SUMMARY | 2023-07-04 15:17 | XMS_ITS | CCD ---
Author Name Unknown Address [address] [place] [address] [phone] Organization Unknown Address [address] [place] [address] [phone] Care Team Providers Care Commissions Analyst Name Role Phone KEVIN GENARO E Attending Physician [phone] Vital Signs Unknown or Not Available. Allergies [...] Code Start Date Resolved Date Status GERD 963717588 Active Anxiety 01542783 Active HTN 12464117 Active RSV infection 39387604 Active Hypoxia 840102254 Active Cellulitis 302214000 Active Anxiety 23775212 01/03/2023 Resolved Infectious colitis 03723211 01/03/2023 Resolv ed Depression 72535017 01/03/2023 Resolved GERD 387072167 01/03/2023 Resolved Acute ischemic colitis (disorder) 34076323 Resolved OTHER SPECIFIED GENITAL PROLAPSE 60942006 Resolved Acute respiratory failure wi th hypoxia 01740968 01/03/2023 Resolved Infectious colitis 24260304 05/16/2023 Resolv ed Stress fracture of left femo ral neck 19216617523651436 05/16/2023 Resolved Femoral neck fracture 4531948 06/23/2023 Res olved Hypokalemia 91616606 05/16/2023 Resolved CYSTOCELE, MIDLINE 912066460 01/03/2023 Resolv ed RECTOCELE 70629730 01/03/2023 Resolved FEMALE STRESS INCONTINENCE 22972148 3 Resolved Other closed fractures of di stal end of radius (alone) 73969070 01/03/2023 Resolved HTN 93138261 01/03/2023 Resolved Results Unknown or Not Available. Active Medications Medication Code Dose Units Frequency Route Modificatio n Start Date/Time Keflex 500MG Oral Capsule 098123 1 CAPSULE FOUR TIMES A DAY ORAL 06/23/2023 13:48 Prescription Detail TAKE 1 CAPSULE ORAL FOUR TIMES A DAY X5 DAYS Potassium Chloride 20MEQ Oral Tablet, Extended Release 3633035 20 MEQ DAILY ORAL 13:47 Prescription Detail TAKE 20 MEQ ORAL DAILY Lisinopril 20MG Oral Tablet 458373 40 MILLIGRAMS DAILY ORAL 023 13:42 Prescription Detail TAKE 40 MILLIGRAMS ORAL DAILY Xarelto 10MG Oral Tablet 0594443 1 TABLET DAILY ORAL 05/25/20 16:02 Prescription Detail TAKE 1 TABLET ORAL DAILY AT 5 PM oxyCODONE HCl 5MG Oral Tablet 7339074 5 MILLIGRAMS NEEDED ORAL 14:42 Prescription Detail TAKE 5 MILLIGRAMS ORAL NEEDED Acetaminophen 500MG Oral Capsule 136990 2 TABLET NEEDED EVERY 6 HOURS ORAL 05/25/2023 14:41 Prescription Detail TAKE 2 TABLET ORAL NEEDED EVERY 6 DOE RS Meloxicam 15MG Oral Tablet 162795 15 MILLIGRAMS NEEDED DAILY ORAL 05/25/2023 14:41 Prescription Detail TAKE 15 MILLIGRAMS ORAL NEEDED DAILY Omeprazole 40MG Oral Capsule, Delayed Release 826073 40 MILLIGRAMS DAILY ORAL 14:41 Prescription Detail TAKE 40 MILLIGRAMS ORAL DAILY Ondansetron 4MG Oral Tablet, Disintegrating 653842 1 TABLET NEEDED EVERY 6 HOURS ORAL 04/06/2023 12:47 Prescription Detail TAKE 1 TABLET ORAL NEEDED EVERY 6 DOE RS FOR Nausea/Vomiting amLODIPine Besylate 5MG Oral Tablet 444622 5 MILLIGRAMS DAILY ORAL 023 09:50 Prescription Detail TAKE 5 MILLIGRAMS ORAL DAILY Imitrex 100MG Oral Tablet 916247 100 MILLIGRAMS NEEDED ORAL 023 09:50 Prescription Detail TAKE 100 MILLIGRAMS ORAL NEEDED LORazepam 1MG Oral Tablet 024074 0.5 MILLIGRAMS NEEDED TWICE DAILY ORAL 01/06/2023 09:50 Prescription Detail TAKE 0.5 MILLIGRAMS ORAL NEEDED TWICE DAILY Medications Administered During Visit Unknown or Not Available. Encounters Encounter Diagnosis Diagnosis Code Start Date Encounter for other specified aftercare [id number] 03/29/2022 Social History Smoking Status Code Start Date End Date Former smoker [id number] 1967 07/10/2005 Patient Decision Aids Unknown or Not Available. Discharge Instructions You were admitted to [facility] on 03/29/2022 14:43 with a principal diagnosis of Encounter for other specified aftercare You were discharged from [facility] on 03/29/2022 09:25 Should you have any questions prior to [...]
--- OUTSIDE RECORDS SUMMARY | 2023-07-04 15:17 | XMS_ITS | CCD ---
Author Name Unknown Address [address] [place] [address] [phone] Organization Unknown Address [address] [place] [address] [phone] Care Team Providers Care Personalization Specialist Name Role Phone KEVIN GENARO E Attending Physician [phone] Vital Signs Unknown or Not Available. Allergies [...] Code Start Date Resolved Date Status GERD 045218011 Active Anxiety 83131270 Active HTN 25424095 Active RSV infection 02173819 Active Hypoxia 897935273 Active Cellulitis 597181739 Active Anxiety 11718124 01/03/2023 Resolved Infectious colitis 98059786 01/03/2023 Resolv ed Depression 92930095 01/03/2023 Resolved GERD 894627454 01/03/2023 Resolved Acute ischemic colitis (disorder) 53836183 Resolved OTHER SPECIFIED GENITAL PROLAPSE 56109741 Resolved Acute respiratory failure wi th hypoxia 97230383 01/03/2023 Resolved Infectious colitis 10923059 05/16/2023 Resolv ed Stress fracture of left femo ral neck 91357454215296153 05/16/2023 Resolved Femoral neck fracture 5651005 06/23/2023 Res olved Hypokalemia 61484437 05/16/2023 Resolved CYSTOCELE, MIDLINE 268872765 01/03/2023 Resolv ed RECTOCELE 87514697 01/03/2023 Resolved FEMALE STRESS INCONTINENCE 71275802 3 Resolved Other closed fractures of di stal end of radius (alone) 75448849 01/03/2023 Resolved HTN 35495354 01/03/2023 Resolved Results Unknown or Not Available. Active Medications Medication Code Dose Units Frequency Route Modificatio n Start Date/Time Keflex 500MG Oral Capsule 824962 1 CAPSULE FOUR TIMES A DAY ORAL 06/23/2023 13:48 Prescription Detail TAKE 1 CAPSULE ORAL FOUR TIMES A DAY X5 DAYS Potassium Chloride 20MEQ Oral Tablet, Extended Release 3926463 20 MEQ DAILY ORAL 13:47 Prescription Detail TAKE 20 MEQ ORAL DAILY Lisinopril 20MG Oral Tablet 613300 40 MILLIGRAMS DAILY ORAL 023 13:42 Prescription Detail TAKE 40 MILLIGRAMS ORAL DAILY Xarelto 10MG Oral Tablet 2840739 1 TABLET DAILY ORAL 05/25/20 16:02 Prescription Detail TAKE 1 TABLET ORAL DAILY AT 5 PM oxyCODONE HCl 5MG Oral Tablet 3236279 5 MILLIGRAMS NEEDED ORAL 14:42 Prescription Detail TAKE 5 MILLIGRAMS ORAL NEEDED Acetaminophen 500MG Oral Capsule 009225 2 TABLET NEEDED EVERY 6 HOURS ORAL 05/25/2023 14:41 Prescription Detail TAKE 2 TABLET ORAL NEEDED EVERY 6 DOE RS Meloxicam 15MG Oral Tablet 047065 15 MILLIGRAMS NEEDED DAILY ORAL 05/25/2023 14:41 Prescription Detail TAKE 15 MILLIGRAMS ORAL NEEDED DAILY Omeprazole 40MG Oral Capsule, Delayed Release 951767 40 MILLIGRAMS DAILY ORAL 14:41 Prescription Detail TAKE 40 MILLIGRAMS ORAL DAILY Ondansetron 4MG Oral Tablet, Disintegrating 256862 1 TABLET NEEDED EVERY 6 HOURS ORAL 04/06/2023 12:47 Prescription Detail TAKE 1 TABLET ORAL NEEDED EVERY 6 DOE RS FOR Nausea/Vomiting amLODIPine Besylate 5MG Oral Tablet 296168 5 MILLIGRAMS DAILY ORAL 023 09:50 Prescription Detail TAKE 5 MILLIGRAMS ORAL DAILY Imitrex 100MG Oral Tablet 236820 100 MILLIGRAMS NEEDED ORAL 023 09:50 Prescription Detail TAKE 100 MILLIGRAMS ORAL NEEDED LORazepam 1MG Oral Tablet 769931 0.5 MILLIGRAMS NEEDED TWICE DAILY ORAL 01/06/2023 09:50 Prescription Detail TAKE 0.5 MILLIGRAMS ORAL NEEDED TWICE DAILY Medications Administered During Visit Unknown or Not Available. Encounters Encounter Diagnosis Diagnosis Code Start Date Encounter for other specified aftercare [id number] 12/07/2021 Social History Smoking Status Code Start Date End Date Former smoker [id number] 1967 07/10/2005 Patient Decision Aids Unknown or Not Available. Discharge Instructions You were admitted to on 12/07/2021 12:30 with a principal diagnosis of Encounter for other specified aftercare You were discharged from on 12/07/2021 14:34 Should you have any questions prior to [...]
--- OUTSIDE RECORDS SUMMARY | 2023-07-04 15:17 | XMS_ITS | CCD ---
Author Name Unknown Address [address] [place] [address] [phone] Organization Unknown Address [address] [place] [address] [phone] Care Team Providers Care Conference Manager Name Role Phone KEVIN GENARO E Attending Physician [phone] Vital Signs Unknown or Not Available. Allergies [...] Code Start Date Resolved Date Status GERD 424008645 Active Anxiety 33882616 Active HTN 34582749 Active RSV infection 92687308 Active Hypoxia 977889426 Active Cellulitis 648615316 Active Anxiety 52320336 01/03/2023 Resolved Infectious colitis 55004964 01/03/2023 Resolv ed Depression 49188303 01/03/2023 Resolved GERD 893303372 01/03/2023 Resolved Acute ischemic colitis (disorder) 83832488 Resolved OTHER SPECIFIED GENITAL PROLAPSE 39728515 Resolved Acute respiratory failure wi th hypoxia 86587769 01/03/2023 Resolved Infectious colitis 49767661 05/16/2023 Resolv ed Stress fracture of left femo ral neck 50805736618962673 05/16/2023 Resolved Femoral neck fracture 6417331 06/23/2023 Res olved Hypokalemia 87808222 05/16/2023 Resolved CYSTOCELE, MIDLINE 336288373 01/03/2023 Resolv ed RECTOCELE 33893530 01/03/2023 Resolved FEMALE STRESS INCONTINENCE 92228558 3 Resolved Other closed fractures of di stal end of radius (alone) 61020271 01/03/2023 Resolved HTN 35701294 01/03/2023 Resolved Results Unknown or Not Available. Active Medications Medication Code Dose Units Frequency Route Modificatio n Start Date/Time Keflex 500MG Oral Capsule 971736 1 CAPSULE FOUR TIMES A DAY ORAL 06/23/2023 13:48 Prescription Detail TAKE 1 CAPSULE ORAL FOUR TIMES A DAY X5 DAYS Potassium Chloride 20MEQ Oral Tablet, Extended Release 5454736 20 MEQ DAILY ORAL 13:47 Prescription Detail TAKE 20 MEQ ORAL DAILY Lisinopril 20MG Oral Tablet 917464 40 MILLIGRAMS DAILY ORAL 023 13:42 Prescription Detail TAKE 40 MILLIGRAMS ORAL DAILY Xarelto 10MG Oral Tablet 7292680 1 TABLET DAILY ORAL 05/25/20 16:02 Prescription Detail TAKE 1 TABLET ORAL DAILY AT 5 PM oxyCODONE HCl 5MG Oral Tablet 7037629 5 MILLIGRAMS NEEDED ORAL 14:42 Prescription Detail TAKE 5 MILLIGRAMS ORAL NEEDED Acetaminophen 500MG Oral Capsule 324962 2 TABLET NEEDED EVERY 6 HOURS ORAL 05/25/2023 14:41 Prescription Detail TAKE 2 TABLET ORAL NEEDED EVERY 6 DOE RS Meloxicam 15MG Oral Tablet 506154 15 MILLIGRAMS NEEDED DAILY ORAL 05/25/2023 14:41 Prescription Detail TAKE 15 MILLIGRAMS ORAL NEEDED DAILY Omeprazole 40MG Oral Capsule, Delayed Release 806646 40 MILLIGRAMS DAILY ORAL 14:41 Prescription Detail TAKE 40 MILLIGRAMS ORAL DAILY Ondansetron 4MG Oral Tablet, Disintegrating 116957 1 TABLET NEEDED EVERY 6 HOURS ORAL 04/06/2023 12:47 Prescription Detail TAKE 1 TABLET ORAL NEEDED EVERY 6 DOE RS FOR Nausea/Vomiting amLODIPine Besylate 5MG Oral Tablet 418606 5 MILLIGRAMS DAILY ORAL 023 09:50 Prescription Detail TAKE 5 MILLIGRAMS ORAL DAILY Imitrex 100MG Oral Tablet 758219 100 MILLIGRAMS NEEDED ORAL 023 09:50 Prescription Detail TAKE 100 MILLIGRAMS ORAL NEEDED LORazepam 1MG Oral Tablet 817236 0.5 MILLIGRAMS NEEDED TWICE DAILY ORAL 01/06/2023 09:50 Prescription Detail TAKE 0.5 MILLIGRAMS ORAL NEEDED TWICE DAILY Medications Administered During Visit Unknown or Not Available. Encounters Encounter Diagnosis Diagnosis Code Start Date Encounter for other specified aftercare [id number] 02/01/2022 Social History Smoking Status Code Start Date End Date Former smoker [id number] 1967 07/10/2005 Patient Decision Aids Unknown or Not Available. Discharge Instructions You were admitted to on 02/01/2022 12:31 with a principal diagnosis of Encounter for other specified aftercare You were discharged from on 02/01/2022 11:16 Should you have any questions prior to [...]
--- OUTSIDE RECORDS SUMMARY | 2023-07-04 15:17 | XMS_ITS | CCD ---
Author Name Unknown Address [address] [place] [address] [phone] Organization Unknown Address [address] [place] [address] [phone] Care Team Providers Care Booth Cleaner Name Role Phone KEVIN GENARO E Attending Physician [phone] Vital Signs Unknown or Not Available. Allergies [...] Code Start Date Resolved Date Status GERD 823196862 Active Anxiety 78644655 Active HTN 91714660 Active RSV infection 35922871 Active Hypoxia 670065152 Active Cellulitis 799411160 Active Anxiety 59151778 01/03/2023 Resolved Infectious colitis 34844934 01/03/2023 Resolv ed Depression 60426530 01/03/2023 Resolved GERD 572932117 01/03/2023 Resolved Acute ischemic colitis (disorder) 87864132 Resolved OTHER SPECIFIED GENITAL PROLAPSE 76234166 Resolved Acute respiratory failure wi th hypoxia 79771276 01/03/2023 Resolved Infectious colitis 17750714 05/16/2023 Resolv ed Stress fracture of left femo ral neck 47261042989015874 05/16/2023 Resolved Femoral neck fracture 3179203 06/23/2023 Res olved Hypokalemia 19128547 05/16/2023 Resolved CYSTOCELE, MIDLINE 606337352 01/03/2023 Resolv ed RECTOCELE 64962657 01/03/2023 Resolved FEMALE STRESS INCONTINENCE 79889283 3 Resolved Other closed fractures of di stal end of radius (alone) 62636781 01/03/2023 Resolved HTN 39081876 01/03/2023 Resolved Results Unknown or Not Available. Active Medications Medication Code Dose Units Frequency Route Modificatio n Start Date/Time Keflex 500MG Oral Capsule 608841 1 CAPSULE FOUR TIMES A DAY ORAL 06/23/2023 13:48 Prescription Detail TAKE 1 CAPSULE ORAL FOUR TIMES A DAY X5 DAYS Potassium Chloride 20MEQ Oral Tablet, Extended Release 5212719 20 MEQ DAILY ORAL 13:47 Prescription Detail TAKE 20 MEQ ORAL DAILY Lisinopril 20MG Oral Tablet 009811 40 MILLIGRAMS DAILY ORAL 023 13:42 Prescription Detail TAKE 40 MILLIGRAMS ORAL DAILY Xarelto 10MG Oral Tablet 6888774 1 TABLET DAILY ORAL 05/25/20 16:02 Prescription Detail TAKE 1 TABLET ORAL DAILY AT 5 PM oxyCODONE HCl 5MG Oral Tablet 2832179 5 MILLIGRAMS NEEDED ORAL 14:42 Prescription Detail TAKE 5 MILLIGRAMS ORAL NEEDED Acetaminophen 500MG Oral Capsule 836779 2 TABLET NEEDED EVERY 6 HOURS ORAL 05/25/2023 14:41 Prescription Detail TAKE 2 TABLET ORAL NEEDED EVERY 6 DOE RS Meloxicam 15MG Oral Tablet 118227 15 MILLIGRAMS NEEDED DAILY ORAL 05/25/2023 14:41 Prescription Detail TAKE 15 MILLIGRAMS ORAL NEEDED DAILY Omeprazole 40MG Oral Capsule, Delayed Release 665947 40 MILLIGRAMS DAILY ORAL 14:41 Prescription Detail TAKE 40 MILLIGRAMS ORAL DAILY Ondansetron 4MG Oral Tablet, Disintegrating 568504 1 TABLET NEEDED EVERY 6 HOURS ORAL 04/06/2023 12:47 Prescription Detail TAKE 1 TABLET ORAL NEEDED EVERY 6 DOE RS FOR Nausea/Vomiting amLODIPine Besylate 5MG Oral Tablet 423107 5 MILLIGRAMS DAILY ORAL 023 09:50 Prescription Detail TAKE 5 MILLIGRAMS ORAL DAILY Imitrex 100MG Oral Tablet 696832 100 MILLIGRAMS NEEDED ORAL 023 09:50 Prescription Detail TAKE 100 MILLIGRAMS ORAL NEEDED LORazepam 1MG Oral Tablet 240434 0.5 MILLIGRAMS NEEDED TWICE DAILY ORAL 01/06/2023 09:50 Prescription Detail TAKE 0.5 MILLIGRAMS ORAL NEEDED TWICE DAILY Medications Administered During Visit Unknown or Not Available. Encounters Encounter Diagnosis Diagnosis Code Start Date Aftercare [id number] 05/12/2022 Social History Smoking Status Code Start Date End Date Former smoker [id number] 1967 07/10/2005 Patient Decision Aids Unknown or Not Available. Discharge Instructions You were admitted to [facility] on 05/12/2022 13:02 with a principal diagnosis of Encounter for other specified aftercare You were discharged from [facility] on 05/12/2022 10:20 Should you have any questions prior to [...]
--- OUTSIDE RECORDS SUMMARY | 2023-07-04 15:17 | XMS_ITS | CCD ---
Author Name Unknown Address [address] [place] [address] [phone] Organization Unknown Address [address] [place] [address] [phone] Care Team Providers Care Wood Casket Maker Name Role Phone KEVIN GENARO E Attending Physician [phone] Vital Signs Unknown or Not Available. Allergies [...] Code Start Date Resolved Date Status GERD 773508283 Active Anxiety 25600843 Active HTN 98312696 Active RSV infection 78407144 Active Hypoxia 464507044 Active Cellulitis 097667722 Active Anxiety 93723349 01/03/2023 Resolved Infectious colitis 57803964 01/03/2023 Resolv ed Depression 21596732 01/03/2023 Resolved GERD 762226760 01/03/2023 Resolved Acute ischemic colitis (disorder) 19362699 Resolved OTHER SPECIFIED GENITAL PROLAPSE 39922850 Resolved Acute respiratory failure wi th hypoxia 42634306 01/03/2023 Resolved Infectious colitis 46135875 05/16/2023 Resolv ed Stress fracture of left femo ral neck 25580758234555693 05/16/2023 Resolved Femoral neck fracture 3756849 06/23/2023 Res olved Hypokalemia 48677517 05/16/2023 Resolved CYSTOCELE, MIDLINE 718942029 01/03/2023 Resolv ed RECTOCELE 94688934 01/03/2023 Resolved FEMALE STRESS INCONTINENCE 64874118 3 Resolved Other closed fractures of di stal end of radius (alone) 37492703 01/03/2023 Resolved HTN 69778428 01/03/2023 Resolved Results Unknown or Not Available. Active Medications Medication Code Dose Units Frequency Route Modificatio n Start Date/Time Keflex 500MG Oral Capsule 985584 1 CAPSULE FOUR TIMES A DAY ORAL 06/23/2023 13:48 Prescription Detail TAKE 1 CAPSULE ORAL FOUR TIMES A DAY X5 DAYS Potassium Chloride 20MEQ Oral Tablet, Extended Release 7216219 20 MEQ DAILY ORAL 13:47 Prescription Detail TAKE 20 MEQ ORAL DAILY Lisinopril 20MG Oral Tablet 244126 40 MILLIGRAMS DAILY ORAL 023 13:42 Prescription Detail TAKE 40 MILLIGRAMS ORAL DAILY Xarelto 10MG Oral Tablet 5680070 1 TABLET DAILY ORAL 05/25/20 16:02 Prescription Detail TAKE 1 TABLET ORAL DAILY AT 5 PM oxyCODONE HCl 5MG Oral Tablet 5348053 5 MILLIGRAMS NEEDED ORAL 14:42 Prescription Detail TAKE 5 MILLIGRAMS ORAL NEEDED Acetaminophen 500MG Oral Capsule 017106 2 TABLET NEEDED EVERY 6 HOURS ORAL 05/25/2023 14:41 Prescription Detail TAKE 2 TABLET ORAL NEEDED EVERY 6 DOE RS Meloxicam 15MG Oral Tablet 704499 15 MILLIGRAMS NEEDED DAILY ORAL 05/25/2023 14:41 Prescription Detail TAKE 15 MILLIGRAMS ORAL NEEDED DAILY Omeprazole 40MG Oral Capsule, Delayed Release 772686 40 MILLIGRAMS DAILY ORAL 14:41 Prescription Detail TAKE 40 MILLIGRAMS ORAL DAILY Ondansetron 4MG Oral Tablet, Disintegrating 974280 1 TABLET NEEDED EVERY 6 HOURS ORAL 04/06/2023 12:47 Prescription Detail TAKE 1 TABLET ORAL NEEDED EVERY 6 DOE RS FOR Nausea/Vomiting amLODIPine Besylate 5MG Oral Tablet 355002 5 MILLIGRAMS DAILY ORAL 023 09:50 Prescription Detail TAKE 5 MILLIGRAMS ORAL DAILY Imitrex 100MG Oral Tablet 322532 100 MILLIGRAMS NEEDED ORAL 023 09:50 Prescription Detail TAKE 100 MILLIGRAMS ORAL NEEDED LORazepam 1MG Oral Tablet 460301 0.5 MILLIGRAMS NEEDED TWICE DAILY ORAL 01/06/2023 09:50 Prescription Detail TAKE 0.5 MILLIGRAMS ORAL NEEDED TWICE DAILY Medications Administered During Visit Unknown or Not Available. Encounters Encounter Diagnosis Diagnosis Code Start Date Encounter for other specified aftercare [id number] 07/14/2022 Social History Smoking Status Code Start Date End Date Former smoker [id number] 1967 07/10/2005 Patient Decision Aids Unknown or Not Available. Discharge Instructions You were admitted to [facility] on 07/14/2022 13:22 with a principal diagnosis of Encounter for other specified aftercare You were discharged from [facility] on 07/14/2022 11:58 Should you have any questions prior to [...]
--- OUTSIDE RECORDS SUMMARY | 2023-07-04 15:18 | XMS_ITS | CCD ---
Author Name Unknown Address [address] [place] [address] [phone] Organization Unknown Address [address] [place] [address] [phone] Care Team Providers Care Naval Gunfire Spotter Name Role Phone KEVIN GENARO E Attending Physician [phone] Vital Signs Unknown or Not Available. Allergies [...] Code Start Date Resolved Date Status GERD 791384866 Active Anxiety 71472353 Active HTN 35304825 Active RSV infection 10264260 Active Hypoxia 616315173 Active Cellulitis 554657081 Active Anxiety 27429957 01/03/2023 Resolved Infectious colitis 42257983 01/03/2023 Resolv ed Depression 30148920 01/03/2023 Resolved GERD 356312715 01/03/2023 Resolved Acute ischemic colitis (disorder) 46437381 Resolved OTHER SPECIFIED GENITAL PROLAPSE 26225703 Resolved Acute respiratory failure wi th hypoxia 13821461 01/03/2023 Resolved Infectious colitis 15242064 05/16/2023 Resolv ed Stress fracture of left femo ral neck [id number] 05/16/2023 Resolved Femoral neck fracture 1638426 06/23/2023 Res olved Hypokalemia 92634267 05/16/2023 Resolved CYSTOCELE, MIDLINE 664252449 01/03/2023 Resolv ed RECTOCELE 77682046 01/03/2023 Resolved FEMALE STRESS INCONTINENCE 72186183 3 Resolved Other closed fractures of di stal end of radius (alone) 35122853 01/03/2023 Resolved HTN 63753166 01/03/2023 Resolved Results Unknown or Not Available. Active Medications Medication Code Dose Units Frequency Route Modificatio n Start Date/Time Keflex 500MG Oral Capsule 884452 1 CAPSULE FOUR TIMES A DAY ORAL 06/23/2023 13:48 Prescription Detail TAKE 1 CAPSULE ORAL FOUR TIMES A DAY X5 DAYS Potassium Chloride 20MEQ Oral Tablet, Extended Release 8857599 20 MEQ DAILY ORAL 13:47 Prescription Detail TAKE 20 MEQ ORAL DAILY Lisinopril 20MG Oral Tablet 615144 40 MILLIGRAMS DAILY ORAL 023 13:42 Prescription Detail TAKE 40 MILLIGRAMS ORAL DAILY Xarelto 10MG Oral Tablet 3644114 1 TABLET DAILY ORAL 05/25/20 16:02 Prescription Detail TAKE 1 TABLET ORAL DAILY AT 5 PM oxyCODONE HCl 5MG Oral Tablet 5011772 5 MILLIGRAMS NEEDED ORAL 14:42 Prescription Detail TAKE 5 MILLIGRAMS ORAL NEEDED Acetaminophen 500MG Oral Capsule 426260 2 TABLET NEEDED EVERY 6 HOURS ORAL 05/25/2023 14:41 Prescription Detail TAKE 2 TABLET ORAL NEEDED EVERY 6 DOE RS Meloxicam 15MG Oral Tablet 882956 15 MILLIGRAMS NEEDED DAILY ORAL 05/25/2023 14:41 Prescription Detail TAKE 15 MILLIGRAMS ORAL NEEDED DAILY Omeprazole 40MG Oral Capsule, Delayed Release 222322 40 MILLIGRAMS DAILY ORAL 14:41 Prescription Detail TAKE 40 MILLIGRAMS ORAL DAILY Ondansetron 4MG Oral Tablet, Disintegrating 279895 1 TABLET NEEDED EVERY 6 HOURS ORAL 04/06/2023 12:47 Prescription Detail TAKE 1 TABLET ORAL NEEDED EVERY 6 DOE RS FOR Nausea/Vomiting amLODIPine Besylate 5MG Oral Tablet 995412 5 MILLIGRAMS DAILY ORAL 023 09:50 Prescription Detail TAKE 5 MILLIGRAMS ORAL DAILY Imitrex 100MG Oral Tablet 804302 100 MILLIGRAMS NEEDED ORAL 023 09:50 Prescription Detail TAKE 100 MILLIGRAMS ORAL NEEDED LORazepam 1MG Oral Tablet 578105 0.5 MILLIGRAMS NEEDED TWICE DAILY ORAL 01/06/2023 09:50 Prescription Detail TAKE 0.5 MILLIGRAMS ORAL NEEDED TWICE DAILY Medications Administered During Visit Unknown or Not Available. Encounters Encounter Diagnosis Diagnosis Code Start Date Encounter for other specified aftercare [id number] 08/17/2021 Social History Smoking Status Code Start Date End Date Former smoker [id number] 1967 07/10/2005 Patient Decision Aids Unknown or Not Available. Discharge Instructions You were admitted to [facility] on 08/17/2021 13:22 with a principal diagnosis of Encounter for other specified aftercare You were discharged from [facility] on 08/17/2021 09:23 Should you have any questions prior to [...]
--- OUTSIDE RECORDS SUMMARY | 2023-07-04 15:18 | XMS_ITS | CCD ---
Author Name Unknown Address [address] [place] [address] [phone] Organization Unknown Address [address] [place] [address] [phone] Care Team Providers Care Trustee Of Estate Name Role Phone RADHA RODRIGUEZ Attending Physician [phone] Vital Signs Unknown or Not Available. Allergies [...] Code Start Date Resolved Date Status GERD 709750825 Active Anxiety 52085522 Active HTN 93287861 Active RSV infection 39317946 Active Hypoxia 106498967 Active Cellulitis 174389024 Active Femoral neck fracture 3108664 06/23/2023 Res olved Results Unknown or Not Available. Active Medications Medication Code Dose Units Frequency Route Modificatio n Start Date/Time Keflex 500MG Oral Capsule 581112 1 CAPSULE FOUR TIMES A DAY ORAL 06/23/2023 13:48 Prescription Detail TAKE 1 CAPSULE ORAL FOUR TIMES A DAY X5 DAYS Potassium Chloride 20MEQ Oral Tablet, Extended Release 0391998 20 MEQ DAILY ORAL 13:47 Prescription Detail TAKE 20 MEQ ORAL DAILY Lisinopril 20MG Oral Tablet 646185 40 MILLIGRAMS DAILY ORAL 023 13:42 Prescription Detail TAKE 40 MILLIGRAMS ORAL DAILY Xarelto 10MG Oral Tablet 9618714 1 TABLET DAILY ORAL 05/25/20 16:02 Prescription Detail TAKE 1 TABLET ORAL DAILY AT 5 PM oxyCODONE HCl 5MG Oral Tablet 1591629 5 MILLIGRAMS NEEDED ORAL 14:42 Prescription Detail TAKE 5 MILLIGRAMS ORAL NEEDED Acetaminophen 500MG Oral Capsule 583288 2 TABLET NEEDED EVERY 6 HOURS ORAL 05/25/2023 14:41 Prescription Detail TAKE 2 TABLET ORAL NEEDED EVERY 6 DOE RS Meloxicam 15MG Oral Tablet 751634 15 MILLIGRAMS NEEDED DAILY ORAL 05/25/2023 14:41 Prescription Detail TAKE 15 MILLIGRAMS ORAL NEEDED DAILY Omeprazole 40MG Oral Capsule, Delayed Release 745450 40 MILLIGRAMS DAILY ORAL 14:41 Prescription Detail TAKE 40 MILLIGRAMS ORAL DAILY Ondansetron 4MG Oral Tablet, Disintegrating 742507 1 TABLET NEEDED EVERY 6 HOURS ORAL 04/06/2023 12:47 Prescription Detail TAKE 1 TABLET ORAL NEEDED EVERY 6 DOE RS FOR Nausea/Vomiting amLODIPine Besylate 5MG Oral Tablet 836336 5 MILLIGRAMS DAILY ORAL 023 09:50 Prescription Detail TAKE 5 MILLIGRAMS ORAL DAILY Imitrex 100MG Oral Tablet 570403 100 MILLIGRAMS NEEDED ORAL 023 09:50 Prescription Detail TAKE 100 MILLIGRAMS ORAL NEEDED LORazepam 1MG Oral Tablet 067175 0.5 MILLIGRAMS NEEDED TWICE DAILY ORAL 01/06/2023 09:50 Prescription Detail TAKE 0.5 MILLIGRAMS ORAL NEEDED TWICE DAILY Medications Administered During Visit Unknown or Not Available. Encounters Encounter Diagnosis Diagnosis Code Start Date Surgical site infection [id number] 06/21/20 Social History Smoking Status Code Start Date End Date Former smoker [id number] Patient Decision Aids Unknown or Not Available. Discharge Instructions You were admitted to [facility] on 06/21/2023 08:35 with a principal diagnosis of Infection following a procedure, other surgical site, initial encounter You were discharged from [facility] on 06/21/2023 15:37 Should you have any questions prior to [...]
--- OUTSIDE RECORDS SUMMARY | 2023-07-04 15:18 | XMS_ITS | CCD ---
Author Name Unknown Address [address] [place] [address] [phone] Organization Unknown Address [address] [place] [address] [phone] Care Team Providers Care Sleeve Tailor Name Role Phone ORVILLE CHRISTIANSON Attending Physician [phone] Vital Signs Unknown or Not Available. Allergies [...] Code Start Date Resolved Date Status GERD 487345232 Active Anxiety 42117457 Active HTN 72295948 Active RSV infection 90961293 Active Hypoxia 604470965 Active Cellulitis 657005097 Active Femoral neck fracture 3366912 06/23/2023 Res olved Results Unknown or Not Available. Active Medications Medication Code Dose Units Frequency Route Modificatio n Start Date/Time Keflex 500MG Oral Capsule 868088 1 CAPSULE FOUR TIMES A DAY ORAL 06/23/2023 13:48 Prescription Detail TAKE 1 CAPSULE ORAL FOUR TIMES A DAY X5 DAYS Potassium Chloride 20MEQ Oral Tablet, Extended Release 7721924 20 MEQ DAILY ORAL 13:47 Prescription Detail TAKE 20 MEQ ORAL DAILY Lisinopril 20MG Oral Tablet 360972 40 MILLIGRAMS DAILY ORAL 023 13:42 Prescription Detail TAKE 40 MILLIGRAMS ORAL DAILY Xarelto 10MG Oral Tablet 3222906 1 TABLET DAILY ORAL 05/25/20 16:02 Prescription Detail TAKE 1 TABLET ORAL DAILY AT 5 PM oxyCODONE HCl 5MG Oral Tablet 0851675 5 MILLIGRAMS NEEDED ORAL 14:42 Prescription Detail TAKE 5 MILLIGRAMS ORAL NEEDED Acetaminophen 500MG Oral Capsule 171042 2 TABLET NEEDED EVERY 6 HOURS ORAL 05/25/2023 14:41 Prescription Detail TAKE 2 TABLET ORAL NEEDED EVERY 6 DOE RS Meloxicam 15MG Oral Tablet 245768 15 MILLIGRAMS NEEDED DAILY ORAL 05/25/2023 14:41 Prescription Detail TAKE 15 MILLIGRAMS ORAL NEEDED DAILY Omeprazole 40MG Oral Capsule, Delayed Release 696120 40 MILLIGRAMS DAILY ORAL 14:41 Prescription Detail TAKE 40 MILLIGRAMS ORAL DAILY Ondansetron 4MG Oral Tablet, Disintegrating 554715 1 TABLET NEEDED EVERY 6 HOURS ORAL 04/06/2023 12:47 Prescription Detail TAKE 1 TABLET ORAL NEEDED EVERY 6 DOE RS FOR Nausea/Vomiting amLODIPine Besylate 5MG Oral Tablet 464330 5 MILLIGRAMS DAILY ORAL 023 09:50 Prescription Detail TAKE 5 MILLIGRAMS ORAL DAILY Imitrex 100MG Oral Tablet 978992 100 MILLIGRAMS NEEDED ORAL 023 09:50 Prescription Detail TAKE 100 MILLIGRAMS ORAL NEEDED LORazepam 1MG Oral Tablet 655802 0.5 MILLIGRAMS NEEDED TWICE DAILY ORAL 01/06/2023 09:50 Prescription Detail TAKE 0.5 MILLIGRAMS ORAL NEEDED TWICE DAILY Medications Administered During Visit Unknown or Not Available. Encounters Unknown or Not Available. Social History Smoking Status Code Start Date End Date Former smoker [id number] 1967 07/10/2005 Patient Decision Aids Unknown or Not Available. Discharge Instructions You were admitted to [facility] on 06/21/2023 00:16 You were discharged from [facility] on 06/23/2023 00:17 Should you have any questions prior to [...]
--- OUTSIDE RECORDS SUMMARY | 2023-07-04 15:18 | XMS_ITS | CCD ---
Author Name Unknown Address [address] [place] [address] [phone] Organization Unknown Address [address] [place] [address] [phone] Care Team Providers Care Still Cleaner Tube Name Role Phone TERESSA SIMMONS Attending Physician [phone] Vital Signs Unknown or Not Available. Allergies [...] Code Start Date Resolved Date Status GERD 399997374 Active Anxiety 91844146 Active HTN 67131497 Active RSV infection 62566705 Active Hypoxia 790663475 Active Cellulitis 490802346 Active Infectious colitis 18639520 05/16/2023 [facility] ed Stress fracture of left femo ral neck 03337951736057372 05/16/2023 Resolved Femoral neck fracture 4187525 06/23/2023 Res olved Hypokalemia 01965013 05/16/2023 Resolved Results Unknown or Not Available. Active Medications Medication Code Dose Units Frequency Route Modificatio n Start Date/Time Keflex 500MG Oral Capsule 965806 1 CAPSULE FOUR TIMES A DAY ORAL 06/23/2023 13:48 Prescription Detail TAKE 1 CAPSULE ORAL FOUR TIMES A DAY X5 DAYS Potassium Chloride 20MEQ Oral Tablet, Extended Release 9230665 20 MEQ DAILY ORAL 13:47 Prescription Detail TAKE 20 MEQ ORAL DAILY Lisinopril 20MG Oral Tablet 813101 40 MILLIGRAMS DAILY ORAL 023 13:42 Prescription Detail TAKE 40 MILLIGRAMS ORAL DAILY Xarelto 10MG Oral Tablet 6174859 1 TABLET DAILY ORAL 05/25/20 16:02 Prescription Detail TAKE 1 TABLET ORAL DAILY AT 5 PM oxyCODONE HCl 5MG Oral Tablet 0146699 5 MILLIGRAMS NEEDED ORAL 14:42 Prescription Detail TAKE 5 MILLIGRAMS ORAL NEEDED Acetaminophen 500MG Oral Capsule 929367 2 TABLET NEEDED EVERY 6 HOURS ORAL 05/25/2023 14:41 Prescription Detail TAKE 2 TABLET ORAL NEEDED EVERY 6 DOE RS Meloxicam 15MG Oral Tablet 987581 15 MILLIGRAMS NEEDED DAILY ORAL 05/25/2023 14:41 Prescription Detail TAKE 15 MILLIGRAMS ORAL NEEDED DAILY Omeprazole 40MG Oral Capsule, Delayed Release 718049 40 MILLIGRAMS DAILY ORAL 14:41 Prescription Detail TAKE 40 MILLIGRAMS ORAL DAILY Ondansetron 4MG Oral Tablet, Disintegrating 048914 1 TABLET NEEDED EVERY 6 HOURS ORAL 04/06/2023 12:47 Prescription Detail TAKE 1 TABLET ORAL NEEDED EVERY 6 DOE RS FOR Nausea/Vomiting amLODIPine Besylate 5MG Oral Tablet 611659 5 MILLIGRAMS DAILY ORAL 023 09:50 Prescription Detail TAKE 5 MILLIGRAMS ORAL DAILY Imitrex 100MG Oral Tablet 234921 100 MILLIGRAMS NEEDED ORAL 023 09:50 Prescription Detail TAKE 100 MILLIGRAMS ORAL NEEDED LORazepam 1MG Oral Tablet 360779 0.5 MILLIGRAMS NEEDED TWICE DAILY ORAL 01/06/2023 09:50 Prescription Detail TAKE 0.5 MILLIGRAMS ORAL NEEDED TWICE DAILY Medications Administered During Visit Unknown or Not Available. Encounters Encounter Diagnosis Diagnosis Code Start Date Fracture of unspecified part of neck of left femur, initial encounter for closed fracture [id number] 05/16/2023 Social History Smoking Status Code Start Date End Date Former smoker [id number] 1969 07/10/2005 Patient Decision Aids Unknown or Not Available. Discharge Instructions You were admitted to [facility] on 05/16/2023 11:46 with a principal diagnosis of Fracture of unspecified part of neck of left femur, initial encounter for closed fracture You were discharged from [facility] on 05/22/2023 00:28 Should you have any questions prior to [...]
--- OUTSIDE RECORDS SUMMARY | 2023-07-04 15:18 | XMS_ITS | CCD ---
Author Name Unknown Address [address] [place] [address] [phone] Organization Unknown Address [address] [place] [address] [phone] Care Team Providers Care Returns Clerk Name Role Phone TERESSA SIMMONS Attending Physician [phone] Vital Signs Vital Sign Value Unit Date/Time Recent/Initial ? BP Systolic 152 mmHg 05/23/2023 09:51 Initial VS BP Diastolic 67 mmHg 05/23/2023 09:51 Initia l VS Respiratory Rate 18 bpm 05/23/2023 09:51 In itial VS Heart Rate 89 bpm 05/23/2023 09:51 Initial VS O2 % BldC Oximetry 96 % 05/23/2023 09:51 Initial VS Body Temperature 36.8 degrees 05/23/2023 09:51 In itial VS BP Systolic 114 mmHg 05/25/2023 07:21 Most Re cent VS BP Diastolic 56 mmHg 05/25/2023 07:21 Most R ecent VS Respiratory Rate 18 bpm 05/25/2023 07:[address] Recent VS Heart Rate 96 bpm 05/25/2023 07:21 Most Rec ent VS O2 % BldC Oximetry 94 % 05/25/2023 07:21 Most Recent VS Body Temperature 36.8 degrees 05/25/2023 07:[address] Recent VS Allergies Allergy Code Allergy Type [...] Code Start Date Resolved Date Status GERD 196825877 Active Anxiety 26152542 Active HTN 85015992 Active RSV infection 75646108 Active Hypoxia 451436874 Active Cellulitis 330218427 Active Femoral neck fracture 0723862 06/23/2023 Res olved Results Unknown or Not Available. Active Medications Medication Code Dose Units Frequency Route Modificatio n Start Date/Time Keflex 500MG Oral Capsule 856831 1 CAPSULE FOUR TIMES A DAY ORAL 06/23/2023 13:48 Prescription Detail TAKE 1 CAPSULE ORAL FOUR TIMES A DAY X5 DAYS Potassium Chloride 20MEQ Oral Tablet, Extended Release 7985297 20 MEQ DAILY ORAL 13:47 Prescription Detail TAKE 20 MEQ ORAL DAILY Lisinopril 20MG Oral Tablet 772023 40 MILLIGRAMS DAILY ORAL 023 13:42 Prescription Detail TAKE 40 MILLIGRAMS ORAL DAILY Xarelto 10MG Oral Tablet 3681960 1 TABLET DAILY ORAL 05/25/20 16:02 Prescription Detail TAKE 1 TABLET ORAL DAILY AT 5 PM oxyCODONE HCl 5MG Oral Tablet 5716695 5 MILLIGRAMS NEEDED ORAL 14:42 Prescription Detail TAKE 5 MILLIGRAMS ORAL NEEDED Acetaminophen 500MG Oral Capsule 794573 2 TABLET NEEDED EVERY 6 HOURS ORAL 05/25/2023 14:41 Prescription Detail TAKE 2 TABLET ORAL NEEDED EVERY 6 DOE RS Meloxicam 15MG Oral Tablet 904359 15 MILLIGRAMS NEEDED DAILY ORAL 05/25/2023 14:41 Prescription Detail TAKE 15 MILLIGRAMS ORAL NEEDED DAILY Omeprazole 40MG Oral Capsule, Delayed Release 023671 40 MILLIGRAMS DAILY ORAL 14:41 Prescription Detail TAKE 40 MILLIGRAMS ORAL DAILY Ondansetron 4MG Oral Tablet, Disintegrating 622395 1 TABLET NEEDED EVERY 6 HOURS ORAL 04/06/2023 12:47 Prescription Detail TAKE 1 TABLET ORAL NEEDED EVERY 6 DOE RS FOR Nausea/Vomiting amLODIPine Besylate 5MG Oral Tablet 488080 5 MILLIGRAMS DAILY ORAL 023 09:50 Prescription Detail TAKE 5 MILLIGRAMS ORAL DAILY Imitrex 100MG Oral Tablet 688651 100 MILLIGRAMS NEEDED ORAL 023 09:50 Prescription Detail TAKE 100 MILLIGRAMS ORAL NEEDED LORazepam 1MG Oral Tablet 516333 0.5 MILLIGRAMS NEEDED TWICE DAILY ORAL 01/06/2023 09:50 Prescription Detail TAKE 0.5 MILLIGRAMS ORAL NEEDED TWICE DAILY Medications Administered During Visit Medication Dose Units Frequency Route Date/Time of Last Dose LISINOPRIL TABLET: 20MG 20 MG DAILY PO 05/25/2023 08:50 SENNA/DOCUSATE TABLET: 8.6MG/50MG 1 TAB PRN DAILY PO 05/23/2023 08:1 3 POLYETHYLENE GLYCOL PACKET 3350:17GM 17 GRAMS PRN DAILY PO 05/23/2023 08:1 3 AmLODIPine TABLET: 5MG 5 MG DAILY PO 05/25/2023 08:50 LORazepam TABLET: 0.5MG 0.5 MG PRN BID PO 05/23/2023 08:18 PANTOPRAZOLE TABLET: 40MG 40 MG Q7AM PO 05/25/2023 05:46 RIVAROXABAN TAB: 10MG 10 MG Q5PM PO 05/25/2023 16:15 MELOXICAM TAB: 7.5MG 7.5 MG DAILY WITH FOOD PO 05/25/2023 08:50 TraMADol TABLET: 50MG 50 MG PRN Q6H PO 05/24/2023 05:35 OxyCODONE TABLET no apap added: 5mg 10 MG PRN Q4H PO 05/25/2023 00:5 1 ONDANSETRON TABLET ORAL DISINTEGRAT: 4MG 4 MG PRN Q6H PO 05/25/2023 06:34 ACETAMINOPHEN TABLET: 325MG 975 MG TID PO 05/25/2023 15:02 LORazepam TABLET: 0.5MG 1 MG PRN BID PO 05/25/2023 06:31 Encounters Unknown or Not Available. Social History Smoking Status Code Start Date End Date Former smoker [id number] 1967 07/10/2005 Patient Decision Aids Patient Decision Aid Patient Portal Access Discharge Instructions You were admitted to [facility] on 05/22/2023 21:06 You were discharged from [facility] on 05/25/2023 16:40 Should you have any questions prior to discharge, please contact a member of your healthcare team. If you have left the hospital and have any questions, please contact your primary care physician. Chief Complaint and Reason For Visit Chief Complaint Date of Onset LEFT FEMORAL NECK FRACTURE 05/22/2023 Function Status Unknown or Not Available. Plan of Care Unknown or Not Available. Referral/Transition of Care Unknown or Not Available.
--- OUTSIDE RECORDS SUMMARY | 2023-07-04 15:18 | XMS_ITS | CCD ---
Author Name Unknown Address [address] [place] [address] [phone] Organization Unknown Address [address] [place] [address] [phone] Care Team Providers Care Jar Capper Name Role Phone TERESSA SIMMONS Attending Physician [phone] Vital Signs Unknown or Not Available. [...] Code Start Date Resolved Date Status GERD 277128233 Active Anxiety 30318477 Active HTN 38300329 Active RSV infection 81023606 Active Hypoxia 013425335 Active Cellulitis 237201575 Active Femoral neck fracture 5580624 06/23/2023 Res olved Results Unknown or Not Available. Active Medications Medication Code Dose Units Frequency Route Modificatio n Start Date/Time Keflex 500MG Oral Capsule 825975 1 CAPSULE FOUR TIMES A DAY ORAL 06/23/2023 13:48 Prescription Detail TAKE 1 CAPSULE ORAL FOUR TIMES A DAY X5 DAYS Potassium Chloride 20MEQ Oral Tablet, Extended Release 0386375 20 MEQ DAILY ORAL 13:47 Prescription Detail TAKE 20 MEQ ORAL DAILY Lisinopril 20MG Oral Tablet 435681 40 MILLIGRAMS DAILY ORAL 023 13:42 Prescription Detail TAKE 40 MILLIGRAMS ORAL DAILY Xarelto 10MG Oral Tablet 5909548 1 TABLET DAILY ORAL 05/25/20 16:02 Prescription Detail TAKE 1 TABLET ORAL DAILY AT 5 PM oxyCODONE HCl 5MG Oral Tablet 3546934 5 MILLIGRAMS NEEDED ORAL 14:42 Prescription Detail TAKE 5 MILLIGRAMS ORAL NEEDED Acetaminophen 500MG Oral Capsule 514007 2 TABLET NEEDED EVERY 6 HOURS ORAL 05/25/2023 14:41 Prescription Detail TAKE 2 TABLET ORAL NEEDED EVERY 6 DOE RS Meloxicam 15MG Oral Tablet 252932 15 MILLIGRAMS NEEDED DAILY ORAL 05/25/2023 14:41 Prescription Detail TAKE 15 MILLIGRAMS ORAL NEEDED DAILY Omeprazole 40MG Oral Capsule, Delayed Release 250056 40 MILLIGRAMS DAILY ORAL 14:41 Prescription Detail TAKE 40 MILLIGRAMS ORAL DAILY Ondansetron 4MG Oral Tablet, Disintegrating 615600 1 TABLET NEEDED EVERY 6 HOURS ORAL 04/06/2023 12:47 Prescription Detail TAKE 1 TABLET ORAL NEEDED EVERY 6 DOE RS FOR Nausea/Vomiting amLODIPine Besylate 5MG Oral Tablet 246757 5 MILLIGRAMS DAILY ORAL 023 09:50 Prescription Detail TAKE 5 MILLIGRAMS ORAL DAILY Imitrex 100MG Oral Tablet 034198 100 MILLIGRAMS NEEDED ORAL 023 09:50 Prescription Detail TAKE 100 MILLIGRAMS ORAL NEEDED LORazepam 1MG Oral Tablet 313530 0.5 MILLIGRAMS NEEDED TWICE DAILY ORAL 01/06/2023 09:50 Prescription Detail TAKE 0.5 MILLIGRAMS ORAL NEEDED TWICE DAILY Medications Administered During Visit Unknown or Not Available. Encounters Unknown or Not Available. Social History Smoking Status Code Start Date End Date Former smoker [id number] 1967 07/10/2005 Patient Decision Aids Unknown or Not Available. Discharge Instructions You were admitted to [facility] on 05/22/2023 00:43 You were discharged from [facility] on 05/25/2023 00:44 Should you have any questions prior to [...]
--- OUTSIDE RECORDS SUMMARY | 2023-07-04 15:18 | XMS_ITS | CCD ---
Author Name Unknown Address [address] [place] [address] [phone] Organization Unknown Address [address] [place] [address] [phone] Care Team Providers Care Net Trainer Name Role Phone JULIETA PARKER Attending Physician [phone] Vital Signs Unknown or Not Available. Allergies [...] Code Start Date Resolved Date Status GERD 913841137 Active Anxiety 59465686 Active HTN 92957853 Active RSV infection 23184603 Active Hypoxia 243983434 Active Cellulitis 701989797 Active Anxiety 63621616 01/03/2023 Resolved Infectious colitis 85474831 01/03/2023 Resolv ed Depression 31911511 01/03/2023 Resolved GERD 472466368 01/03/2023 Resolved Acute ischemic colitis (disorder) 06264574 Resolved OTHER SPECIFIED GENITAL PROLAPSE 06216371 Resolved Acute respiratory failure wi th hypoxia 14795897 01/03/2023 Resolved Infectious colitis 44340281 05/16/2023 Resolv ed Stress fracture of left femo ral neck [id number] 05/16/2023 Resolved Femoral neck fracture 2226725 06/23/2023 Res olved Hypokalemia 69657215 05/16/2023 Resolved CYSTOCELE, MIDLINE 023711587 01/03/2023 Resolv ed RECTOCELE 21077596 01/03/2023 Resolved FEMALE STRESS INCONTINENCE 71269184 3 Resolved Other closed fractures of di stal end of radius (alone) 70290436 01/03/2023 Resolved HTN 10187707 01/03/2023 Resolved Results SARI BORJAS* - Yolande ect Date/Time: 05/17/2021 11:48 Test Name Code Test Result Test Units Test Ref Rang e SOURCE= Anterior nasal N/A Tier- PRE-OP N/A SARS COV2 RNA: 79638-6 NEGATIVE N/A REFERENCE RANGE: NEGAT Active Medications Medication Code Dose Units Frequency Route Modificatio n Start Date/Time Keflex 500MG Oral Capsule 204622 1 CAPSULE FOUR TIMES A DAY ORAL 06/23/2023 13:48 Prescription Detail TAKE 1 CAPSULE ORAL FOUR TIMES A DAY X5 DAYS Potassium Chloride 20MEQ Oral Tablet, Extended Release 6853691 20 MEQ DAILY ORAL 13:47 Prescription Detail TAKE 20 MEQ ORAL DAILY Lisinopril 20MG Oral Tablet 839250 40 MILLIGRAMS DAILY ORAL 023 13:42 Prescription Detail TAKE 40 MILLIGRAMS ORAL DAILY Xarelto 10MG Oral Tablet 2628442 1 TABLET DAILY ORAL 05/25/20 16:02 Prescription Detail TAKE 1 TABLET ORAL DAILY AT 5 PM oxyCODONE HCl 5MG Oral Tablet 5178087 5 MILLIGRAMS NEEDED ORAL 14:42 Prescription Detail TAKE 5 MILLIGRAMS ORAL NEEDED Acetaminophen 500MG Oral Capsule 769187 2 TABLET NEEDED EVERY 6 HOURS ORAL 05/25/2023 14:41 Prescription Detail TAKE 2 TABLET ORAL NEEDED EVERY 6 DOE RS Meloxicam 15MG Oral Tablet 995949 15 MILLIGRAMS NEEDED DAILY ORAL 05/25/2023 14:41 Prescription Detail TAKE 15 MILLIGRAMS ORAL NEEDED DAILY Omeprazole 40MG Oral Capsule, Delayed Release 461228 40 MILLIGRAMS DAILY ORAL 14:41 Prescription Detail TAKE 40 MILLIGRAMS ORAL DAILY Ondansetron 4MG Oral Tablet, Disintegrating 334387 1 TABLET NEEDED EVERY 6 HOURS ORAL 04/06/2023 12:47 Prescription Detail TAKE 1 TABLET ORAL NEEDED EVERY 6 DOE RS FOR Nausea/Vomiting amLODIPine Besylate 5MG Oral Tablet 975757 5 MILLIGRAMS DAILY ORAL 023 09:50 Prescription Detail TAKE 5 MILLIGRAMS ORAL DAILY Imitrex 100MG Oral Tablet 653831 100 MILLIGRAMS NEEDED ORAL 023 09:50 Prescription Detail TAKE 100 MILLIGRAMS ORAL NEEDED LORazepam 1MG Oral Tablet 375201 0.5 MILLIGRAMS NEEDED TWICE DAILY ORAL 01/06/2023 09:50 Prescription Detail TAKE 0.5 MILLIGRAMS ORAL NEEDED TWICE DAILY Medications Administered During Visit Unknown or Not Available. Encounters Encounter Diagnosis Diagnosis Code Start Date Exposure to SARS-CoV-2 [id number] Social History Smoking Status Code Start Date End Date Former smoker [id number] 1967 07/10/2005 Patient Decision Aids Unknown or Not Available. Discharge Instructions You were admitted to [facility] on 05/17/2021 13:02 with a principal diagnosis of Contact with and (suspected) exposure to COVID-19 You had the following tests done:[facility] COVID RHEONIX* You were discharged from [facility] on 05/17/2021 13:02 Should you have any questions prior to [...]
--- OUTSIDE RECORDS SUMMARY | 2023-07-04 15:18 | XMS_ITS | CCD ---
Author Name Unknown Address [address] [place] [address] [phone] Organization Unknown Address [address] [place] [address] [phone] Care Team Providers Care Social Media Job Titles Name Role Phone ORVILLE CHRISTIANSON Attending Physician [phone] RADHA RODRIGUEZ Er Physician [phone] RADHA RODRIGUEZ Rounding (Secondary) Physician [phone] LALY Dickey Registered Nurse [phone] Vital Signs Vital Sign Value Unit Date/Time Recent/Initial ? BMI (Body Mass Index) 27.46 kg/m^2 06/21/2023 08: 57 Initial VS Weight Measured 160 lbs 06/21/2023 08:57 Ini tial VS Height 64 in 06/21/2023 08:57 Initial VS BSA (Body Surface Area) 1.81 m^2 06/21/2023 0 8:57 Initial VS BP Systolic 154 mmHg 06/21/2023 08:57 Initial VS BP Diastolic 59 mmHg 06/21/2023 08:57 Initia l VS Respiratory Rate 24 bpm 06/21/2023 08:57 In itial VS Heart Rate 96 bpm 06/21/2023 08:57 Initial VS O2 % BldC Oximetry 96 % 06/21/2023 08:57 Initial VS Body Temperature 39.2 degrees 06/21/2023 08:57 In itial VS Weight Measured 157 lbs 06/21/2023 15:45 Mos t Recent VS BP Systolic 185 mmHg 06/23/2023 08:45 Most Re cent VS BP Diastolic 81 mmHg 06/23/2023 08:45 Most R ecent VS Respiratory Rate 20 bpm 06/23/2023 08:[address] Recent VS Heart Rate 94 bpm 06/23/2023 08:45 Most Rec ent VS O2 % BldC Oximetry 90 % 06/23/2023 08:45 Most Recent VS Body Temperature 36.6 degrees 06/23/2023 08:[address] Recent VS Allergies Allergy Code [...] Code Start Date Resolved Date Status GERD 966203018 Active Anxiety 90782066 Active HTN 12599640 Active RSV infection 88233108 Active Hypoxia 181795630 Active Cellulitis 919001129 Active Femoral neck fracture 2127906 06/23/2023 Res olved Results BASIC METABOLIC PANEL (BMP) - Collect Date/Time: 06/23/2023 06:55 Test Name Code Test Result Test Units Test Ref Rang e GLUCOSE 2345-7 99 mg/dL L=70 H=116 BUN 3094-0 7 mg/dL L=6 H=25 CREATININE 2160-0 0.63 mg/dL L=0.51 H=0.95 SODIUM SERUM 2951-2 141 mmol/L L=136 H=145 POTASSIUM SERUM 2823-3 3.6 mmol/L L=3.4 H=5 .2 CHLORIDE SERUM 2075-0 105 mmol/L L=96 H=110 CARBON DIOXIDE (CO2) 2028-9 29 mmol/L L=22 H=34 ANION GAP 24690-3 6.8 mmol/L CALCIUM SERUM 09564-8 8.7 mg/dL L=8.2 H=10. 2 AGE 82 years eGFR (non-Afr.Amer.) 46488-1 91 mL/min eGFR (Afr-Slovak) 26748-7 110 mL/min BASIC METABOLIC PANEL (BMP) - Collect Date/Time: 06/22/2023 06:45 Test Name Code Test Result Test Units Test Ref Rang e GLUCOSE 2345-7 99 mg/dL L=70 H=116 BUN 3094-0 10 mg/dL L=6 H=25 CREATININE 2160-0 0.57 mg/dL L=0.51 H=0.95 SODIUM SERUM 2951-2 142 mmol/L L=136 H=145 POTASSIUM SERUM 2823-3 3.2 mmol/L L=3.4 H=5 .2 CHLORIDE SERUM 2075-0 106 mmol/L L=96 H=110 CARBON DIOXIDE (CO2) 2028-9 30 mmol/L L=22 H=34 ANION GAP 84914-3 6.5 mmol/L CALCIUM SERUM 34527-6 8.5 mg/dL L=8.2 H=10. 2 AGE 82 years eGFR (non-Afr.Amer.) 05581-9 102 mL/min eGFR (Afr-Slovak) 49501-7 >120 mL/min C REACTIVE PROTEIN HIGH SENS ITIVITY* - Collect Date/Time: 06/21/2023 08:50 Test Name Code Test Result Test Units Test Ref Rang e CRP-HIGH SENS. 36092-6 27.44 mg/L L=0.00 H=3 .00 CRP-HIGH SENS 86779-1 2.74 mg/dL L=0.00 H=0. 30 COMPREHENSIVE METABOLIC PANE L (CMP) - Collect Date/Time: 06/21/2023 08:50 Test Name Code Test Result Test Units Test Ref Rang e GLUCOSE 2345-7 145 mg/dL L=70 H=116 BUN 3094-0 11 mg/dL L=6 H=25 CREATININE 2160-0 0.76 mg/dL L=0.51 H=0.95 SODIUM SERUM 2951-2 138 mmol/L L=136 H=145 POTASSIUM SERUM 2823-3 2.6 mmol/L L=3.4 H=5 .2 CHLORIDE SERUM 2075-0 100 mmol/L L=96 H=110 CARBON DIOXIDE (CO2) 8-9 29 mmol/L L=22 H=34 ANION GAP 67647-4 8.7 mmol/L CALCIUM SERUM 40577-6 8.8 mg/dL L=8.2 H=10. 2 BILIRUBIN TOTAL 1975-2 0.3 mg/dL L=0.0 H=1 .3 ALK. PHOS. 6768-6 102 U/L L=46 H=116 SGOT (AST) 1920-8 19 U/L L=15 H=37 SGPT (ALT) 1742-6 10 U/L L=12 H=78 TOTAL PROTEIN 2885-2 6.8 gm/dL L=6.0 H=8.0 ALBUMIN 1751-7 2.8 gm/dL L=3.4 H=5.0 AGE 82 years eGFR (non-Afr.Amer.) 10029-9 73 mL/min eGFR (Afr-Slovak) 01088-0 89 mL/min LACTIC ACID - Collect Date/T christina: 06/21/2023 08:50 Test Name Code Test Result Test Units Test Ref Rang e LACTIC ACID 91309-8 1.9 mmol/L L=0.7 H=2.1 MAGNESIUM SERUM* - Collect D ate/Time: 06/22/2023 06:45 Test Name Code Test Result Test Units Test Ref Rang e MAGNESIUM 64888-9 2.0 mg/dL L=1.8 H=2.4 MAGNESIUM SERUM* - Collect D ate/Time: 06/21/2023 08:50 Test Name Code Test Result Test Units Test Ref Rang e MAGNESIUM 38856-2 1.8 mg/dL L=1.8 H=2.4 NOVA GLUCOSE FINGER HEEL CAP ILLARY - Collect Date/Time: 06/21/2023 09:33 Test Name Code Test Result Test Units Test Ref Rang e GLUCOSE CAP 69184-4 118 mg/dL L=70 H=116 TROPONIN HIGH SENSITIVITY* - Collect Date/Time: 06/22/2023 06:45 Test Name Code Test Result Test Units Test Ref Rang e TROPONIN HS 161.0 pg/mL L=0.0 H=60.4 Specimen seq. RANDOM N/A TROPONIN HIGH SENSITIVITY* - Collect Date/Time: 06/21/2023 19:30 Test Name Code Test Result Test Units Test Ref Rang e TROPONIN HS 221.6 pg/mL L=0.0 H=60.4 Specimen seq. RANDOM N/A TROPONIN HIGH SENSITIVITY* - Collect Date/Time: 06/21/2023 12:30 Test Name Code Test Result Test Units Test Ref Rang e TROPONIN HS 249.2 pg/mL L=0.0 H=60.4 Specimen seq. 3 HOUR N/A TROPONIN HIGH SENSITIVITY* - Collect Date/Time: 06/21/2023 08:50 Test Name Code Test Result Test Units Test Ref Rang e TROPONIN HS 108.2 pg/mL L=0.0 H=60.4 Specimen seq. RANDOM N/A CBC W/ DIFFERENTIAL* - [facility] ct Date/Time: 06/23/2023 06:55 Test Name Code Test Result Test Units Test Ref Rang e WBC 6690-2 5.14 th/cmm L=5.00 H=10.00 NEUT % 57.2 % L=40.0 H=80.0 LYMPH % 25.1 % L=10.0 H=50.0 MONO % 24133-5 10.1 % L=2.0 H=12.0 EOS % 6.8 % L=0.0 H=8.0 BASO % 0.6 % L=0.0 H=3.0 IG % 2514-8 0.2 % L=0.0 H=1.1 NRBC % 64260-0 0.0 % L=0.0 H=0.0 NEUT abs count 751-8 2.9 th/cmm L=1.6 H=8. 4 LYMPH abs count 731-0 1.3 th/cmm L=1.5 H=4 .0 MONO abs count 742-7 0.5 th/cmm L=0.2 H=1. 0 EOS abs count 711-2 0.4 th/cmm L=0.0 H=0.5 BASO abs count 704-7 0.0 th/cmm L=0.0 H=0. 2 IG abs count 34012-5 0.0 th/cmm L=0.0 H=0.1 NRBC abs count 62988-2 0.0 mil/cmm L=0.0 H=0. 0 RBC 789-8 3.69 mil/cmm L=3.90 H=5.40 HEMOGLOBIN 718-7 10.4 gm/dL L=12.0 H=16.0 HEMATOCRIT 4544-3 33 % L=37 H=47 MCV 787-2 90 fL L=82 H=92 MCH 785-6 28.2 pg L=27.0 H=31.0 MCHC 786-4 31.2 % L=32.0 H=36.0 RDW-SD 788-0 46.5 fL L=39.0 H=49.0 PLATELET COUNT 777-3 300 th/cmm L=150 H=45 0 CBC W/ DIFFERENTIAL* - [facility] ct Date/Time: 06/22/2023 06:45 Test Name Code Test Result Test Units Test Ref Rang e WBC 6690-2 3.57 th/cmm L=5.00 H=10.00 NEUT % 54.1 % L=40.0 H=80.0 LYMPH % 25.8 % L=10.0 H=50.0 MONO % 02693-4 11.2 % L=2.0 H=12.0 EOS % 7.8 % L=0.0 H=8.0 BASO % 0.8 % L=0.0 H=3.0 IG % 2514-8 0.3 % L=0.0 H=1.1 NRBC % 21184-8 0.0 % L=0.0 H=0.0 NEUT abs count 751-8 1.9 th/cmm L=1.6 H=8. 4 LYMPH abs count 731-0 0.9 th/cmm L=1.5 H=4 .0 MONO abs count 742-7 0.4 th/cmm L=0.2 H=1. 0 EOS abs count 711-2 0.3 th/cmm L=0.0 H=0.5 BASO abs count 704-7 0.0 th/cmm L=0.0 H=0. 2 IG abs count 70870-6 0.0 th/cmm L=0.0 H=0.1 NRBC abs count 48047-9 0.0 mil/cmm L=0.0 H=0. 0 RBC 789-8 3.39 mil/cmm L=3.90 H=5.40 HEMOGLOBIN 718-7 9.5 gm/dL L=12.0 H=16.0 HEMATOCRIT 4544-3 31 % L=37 H=47 MCV 787-2 92 fL L=82 H=92 MCH 785-6 28.0 pg L=27.0 H=31.0 MCHC 786-4 30.5 % L=32.0 H=36.0 RDW-SD 788-0 48.2 fL L=39.0 H=49.0 PLATELET COUNT 777-3 279 th/cmm L=150 H=45 0 CBC W/ DIFFERENTIAL* - [facility] ct Date/Time: 06/21/2023 08:50 Test Name Code Test Result Test Units Test Ref Rang e WBC 6690-2 5.30 th/cmm L=5.00 H=10.00 NEUT % 75.0 % L=40.0 H=80.0 LYMPH % 15.5 % L=10.0 H=50.0 MONO % 54645-3 5.8 % L=2.0 H=12.0 EOS % 2.5 % L=0.0 H=8.0 BASO % 0.6 % L=0.0 H=3.0 IG % 2514-8 0.6 % L=0.0 H=1.1 NRBC % 39091-1 0.0 % L=0.0 H=0.0 NEUT abs count 751-8 4.0 th/cmm L=1.6 H=8. 4 LYMPH abs count 731-0 0.8 th/cmm L=1.5 H=4 .0 MONO abs count 742-7 0.3 th/cmm L=0.2 H=1. 0 EOS abs count 711-2 0.1 th/cmm L=0.0 H=0.5 BASO abs count 704-7 0.0 th/cmm L=0.0 H=0. 2 IG abs count 33880-2 0.0 th/cmm L=0.0 H=0.1 NRBC abs count 65434-6 0.0 mil/cmm L=0.0 H=0. 0 RBC 789-8 3.60 mil/cmm L=3.90 H=5.40 HEMOGLOBIN 718-7 10.2 gm/dL L=12.0 H=16.0 HEMATOCRIT 4544-3 33 % L=37 H=47 MCV 787-2 91 fL L=82 H=92 MCH 785-6 28.3 pg L=27.0 H=31.0 MCHC 786-4 31.1 % L=32.0 H=36.0 RDW-SD 788-0 47.8 fL L=39.0 H=49.0 PLATELET COUNT 777-3 318 th/cmm L=150 H=45 0 SED RATE* - Collect Date/Jose e: 06/21/2023 08:50 Test Name Code Test Result Test Units Test Ref Rang e SED. RATE 4537-7 43 mm/hr L=0 H=30 SARI COVID FLU RSV GENEXPE RT - Collect Date/Time: 06/21/2023 08:50 Test Name Code Test Result Test Units Test Ref Rang e COVID 44140-2 NEGATIVE N/A Normal: Negati ve INFLUENZA A DNA 93819-1 NEGATIVE N/A Normal: N egative INFLUENZA B DNA 25464-5 NEGATIVE N/A Normal: N egative RSV DNA 89498-1 POSITIVE N/A Normal: Negati ve URINALYSIS WITH REFLEX CULT IF POSITIVE* - Collect Date/Time: 06/21/2023 11:24 Test Name Code Test Result Test Units Test Ref Rang e COLLECTION MODE: 46811-0 CLEAN CATCH N/A Color 5778-6 YELLOW N/A yellow Appearance 5767-9 CLEAR N/A clear Glucose urine 61790-3 NEGATIVE N/A negative mg /dl Bilirubin 5770-3 NEGATIVE N/A negative Ketones 2514-8 15 N/A negative mg/dl Spec gravity 5811-5 1.025 N/A 1.003 - 1.03 0 pH urine 2756-5 5.5 N/A 5.0 - 7.0 Protein 21995-0 TRACE N/A negative mg/dl Urobilinogen 21374-6 0.2 N/A <or= 1 EU/dl Nitrite. 5802-4 NEGATIVE N/A negative Blood 5794-3 SMALL N/A negative Leukocytes. TRACE N/A negative MICROSCOPIC INDICATED N/A WBCs. 89368-6 5-10 N/A 0-5 / hpf RBCs 87050-5 5-10 N/A 0-5 / hpf Epith cells 32637-9 10-25 N/A 0-5 / hpf Cell types squamous N/A Crystals none N/A none Bacteria moderate N/A none Mucus 8247-9 none N/A none Casts 63105-9 none N/A none /lpf VITAMIN D 25 OH TOTAL* - Col lect Date/Time: 06/22/2023 06:45 Test Name Code Test Result Test Units Test Ref Rang e Vitamin D, Total (25 OH) 28 N/A 30-100 ORDER VENOUS BLOOD GAS* - Co llect Date/Time: 06/21/2023 08:50 Test Name Code Test Result Test Units Test Ref Rang e pH (venous) 2746-6 7.39 L=7.38 H=7.46 PCO2 (venous) 2703-7 46.9 mm Hg L=41.0 H=51 .0 HCO3 1960-4 28 mmol/L L=22 H=26 TCO2 (venous) 3533-7 30 mmol/L L=22 H=28 BASE EXCESS (venous) 3097-3 3 mmol/L L=-2 H=3 Specimen type: VENOUS N/A Active Medications Medication Code Dose Units Frequency Route Modificatio n Start Date/Time Keflex 500MG Oral Capsule 428879 1 CAPSULE FOUR TIMES A DAY ORAL 06/23/2023 13:48 Prescription Detail TAKE 1 CAPSULE ORAL FOUR TIMES A DAY X5 DAYS Potassium Chloride 20MEQ Oral Tablet, Extended Release 3379942 20 MEQ DAILY ORAL 13:47 Prescription Detail TAKE 20 MEQ ORAL DAILY Lisinopril 20MG Oral Tablet 786921 40 MILLIGRAMS DAILY ORAL 023 13:42 Prescription Detail TAKE 40 MILLIGRAMS ORAL DAILY Xarelto 10MG Oral Tablet 7971379 1 TABLET DAILY ORAL 05/25/20 16:02 Prescription Detail TAKE 1 TABLET ORAL DAILY AT 5 PM oxyCODONE HCl 5MG Oral Tablet 5731623 5 MILLIGRAMS NEEDED ORAL 14:42 Prescription Detail TAKE 5 MILLIGRAMS ORAL NEEDED Acetaminophen 500MG Oral Capsule 182060 2 TABLET NEEDED EVERY 6 HOURS ORAL 05/25/2023 14:41 Prescription Detail TAKE 2 TABLET ORAL NEEDED EVERY 6 DOE RS Meloxicam 15MG Oral Tablet 525460 15 MILLIGRAMS NEEDED DAILY ORAL 05/25/2023 14:41 Prescription Detail TAKE 15 MILLIGRAMS ORAL NEEDED DAILY Omeprazole 40MG Oral Capsule, Delayed Release 822556 40 MILLIGRAMS DAILY ORAL 14:41 Prescription Detail TAKE 40 MILLIGRAMS ORAL DAILY Ondansetron 4MG Oral Tablet, Disintegrating 784562 1 TABLET NEEDED EVERY 6 HOURS ORAL 04/06/2023 12:47 Prescription Detail TAKE 1 TABLET ORAL NEEDED EVERY 6 DOE RS FOR Nausea/Vomiting amLODIPine Besylate 5MG Oral Tablet 650248 5 MILLIGRAMS DAILY ORAL 023 09:50 Prescription Detail TAKE 5 MILLIGRAMS ORAL DAILY Imitrex 100MG Oral Tablet 146375 100 MILLIGRAMS NEEDED ORAL 023 09:50 Prescription Detail TAKE 100 MILLIGRAMS ORAL NEEDED LORazepam 1MG Oral Tablet 009959 0.5 MILLIGRAMS NEEDED TWICE DAILY ORAL 01/06/2023 09:50 Prescription Detail TAKE 0.5 MILLIGRAMS ORAL NEEDED TWICE DAILY Medications Administered During Visit Medication Dose Units Frequency Route Date/Time of Last Dose ACETAMINOPHEN INJ IVPB: 1000MG/100ML 1000 MG X1 IVPB 06/21/2023 09:4 6 SODIUM CHLORIDE 0.9% 500ML 1 EA X1 IV 06/21/2023 09:46 ALBUTEROL/IPRATROP UPDRAFT:2.5/0.5MG/3ML 3 ML X1 INH 2022 11:10 CeFAZolin IVPB FROZEN PREMIX : 2GM/100ML 1 EA X1 IVPB 06/21/2023 11:3 0 POTASSIUM CHL TABLET: 20mEq 40 MEQ X1 PO 06/21/2023 12:47 ASPIRIN TABLET CHEWABLE: 81MG 324 MG X1 CHEW 06/21/2023 13:07 POTASSIUM CHL TABLET: 20mEq 20 MEQ X1 PO 06/21/2023 18:30 METOPROLOL TARTRATE TABLET: 25MG 25 MG X1 PO 06/21/2023 18:3 0 AmLODIPine TABLET: 5MG 5 MG DAILY PO 06/23/2023 08:28 PANTOPRAZOLE TABLET: 40MG 40 MG Q7AM PO 06/23/2023 06:44 OxyCODONE TABLET no apap added: 5mg 5 MG PRN PO 06/21/2023 20:5 4 SODIUM CHLORIDE 0.9% FLUSH 10ML SYRINGE 2 ML Q8H IVP 06/23/2023 06:4 3 LORazepam TABLET: 0.5MG 1 MG PRN BID PO 06/22/2023 08:13 CeFAZolin IVPB: 1GM/50ML 1 GM Q8H IVPB 06/23/2023 10:22 POTASSIUM CHL TABLET: 20mEq 20 MEQ TID WITH DONELL D PO 06/23/2023 13:00 METOPROLOL TARTRATE TABLET: 25MG 25 MG BID PO 06/23/2023 08:2 8 ASPIRIN TABLET E.C.: 81MG 81 MG DAILY WITH DONELL D PO 06/23/2023 08:28 LISINOPRIL TABLET: 20MG 20 MG DAILY PO 06/22/2023 08:13 ONDANSETRON TABLET ORAL DISINTEGRAT: 4MG 4 MG PRN Q6H PO 06/23/2023 10:24 ATORVASTATIN TABLET: 40MG 40 MG BEDTIME PO 06/22/2023 20:06 RIVAROXABAN TAB: 10MG 10 MG DAILY PO 06/23/2023 08:28 BUDESONIDE/FORMOTEROL INHALER:160/4.5MCG 2 PUFF BID RESP INH 07:52 GuaiFENesin/DM SYRUP: 200/20MG/10ML 10 ML PRN Q4H PO 06/23/2023 10: 24 LORazepam TABLET: 0.5MG 0.5 MG BID PO 06/22/2023 18:18 OxyCODONE TABLET no apap added: 5mg 5 MG PRN Q4H PO 06/23/2023 10:2 4 LISINOPRIL TABLET: 20MG 20 MG X1 PO 06/22/2023 17:55 LISINOPRIL TABLET: 20MG 40 MG DAILY PO 06/23/2023 08:28 LORazepam TABLET: 0.5MG 1 MG BID PO 06/23/2023 08:28 Encounters Encounter Diagnosis Diagnosis Code Start Date Respiratory syncytial virus pneumonia J121 06/21/2023 Social History Smoking Status Code Start Date End Date Former smoker [id number] 1967 07/10/2005 Patient Decision Aids Unknown or Not Available. Discharge Instructions You were admitted to [facility] on 06/21/2023 13:15 with a principal diagnosis of Respiratory syncytial virus pneumonia You had the following tests done:BASIC METABOLIC PANEL (BMP)CBC W/ DIFFERENTIAL*BASIC METABOLIC PANEL (BMP)CBC W/ DIFFERENTIAL*MAGNESIUM SERUM*TROPONIN HIGH SENSITIVITY*VITAMIN D 25 OH TOTAL*TROPONIN HIGH SENSITIVITY*TROPONIN HIGH SENSITIVITY*URINALYSIS WITH REFLEX CULT IF POSITIVE*NOVA GLUCOSE FINGER HEEL CAPILLARYC REACTIVE PROTEIN HIGH SENSITIVITY*CBC W/ DIFFERENTIAL*COMPREHENSIVE METABOLIC PANEL (CMP)[facility] COVID FLU RSV GENEXPERTLACTIC ACIDMAGNESIUM SERUM*ORDER VENOUS BLOOD GAS*SED RATE*TROPONIN HIGH SENSITIVITY* You were discharged from [facility] on 06/23/2023 15:25 Should you have any questions prior to discharge, please contact a member of your healthcare team. If you have left the hospital and have any questions, please contact your primary care physician. Chief Complaint and Reason For Visit Chief Complaint Date of Onset RSV CELLULITIS 06/21/2023 Function Status Unknown or Not Available. Plan of Care Unknown or Not Available. Referral/Transition of Care Unknown or Not Available.
--- OUTSIDE RECORDS SUMMARY | 2023-07-04 15:18 | XMS_ITS | CCD ---
Author Name Unknown Address [address] [place] [address] [phone] Organization Unknown Address [address] [place] [address] [phone] Care Team Providers Care Bunghole Borer Name Role Phone KEVIN GENARO E Attending Physician [phone] Vital Signs Unknown or Not Available. Allergies [...] Code Start Date Resolved Date Status GERD 688334957 Active Anxiety 78494485 Active HTN 85142365 Active RSV infection 28530618 Active Hypoxia 821179142 Active Cellulitis 258512930 Active Anxiety 53621988 01/03/2023 Resolved Infectious colitis 40410159 01/03/2023 Resolv ed Depression 03969900 01/03/2023 Resolved GERD 998571693 01/03/2023 Resolved Acute ischemic colitis (disorder) 00630317 Resolved OTHER SPECIFIED GENITAL PROLAPSE 85777503 Resolved Acute respiratory failure wi th hypoxia 46907560 01/03/2023 Resolved Infectious colitis 38311707 05/16/2023 Resolv ed Stress fracture of left femo ral neck 34436054361458464 05/16/2023 Resolved Femoral neck fracture 4683086 06/23/2023 Res olved Hypokalemia 89133874 05/16/2023 Resolved CYSTOCELE, MIDLINE 195079187 01/03/2023 Resolv ed RECTOCELE 35495033 01/03/2023 Resolved FEMALE STRESS INCONTINENCE 43392977 3 Resolved Other closed fractures of di stal end of radius (alone) 14026203 01/03/2023 Resolved HTN 03535887 01/03/2023 Resolved Results Unknown or Not Available. Active Medications Medication Code Dose Units Frequency Route Modificatio n Start Date/Time Keflex 500MG Oral Capsule 540840 1 CAPSULE FOUR TIMES A DAY ORAL 06/23/2023 13:48 Prescription Detail TAKE 1 CAPSULE ORAL FOUR TIMES A DAY X5 DAYS Potassium Chloride 20MEQ Oral Tablet, Extended Release 2067429 20 MEQ DAILY ORAL 13:47 Prescription Detail TAKE 20 MEQ ORAL DAILY Lisinopril 20MG Oral Tablet [id number] 40 MILLIGRAMS DAILY ORAL 023 13:42 Prescription Detail TAKE 40 MILLIGRAMS ORAL DAILY Xarelto 10MG Oral Tablet [id number] 1 TABLET DAILY ORAL 05/25/20 16:02 Prescription Detail TAKE 1 TABLET ORAL DAILY AT 5 PM oxyCODONE HCl 5MG Oral Tablet [id number] 5 MILLIGRAMS NEEDED ORAL 14:42 Prescription Detail TAKE 5 MILLIGRAMS ORAL NEEDED Acetaminophen 500MG Oral Capsule 187512 2 TABLET NEEDED EVERY 6 HOURS ORAL 05/25/2023 14:41 Prescription Detail TAKE 2 TABLET ORAL NEEDED EVERY 6 DOE RS Meloxicam 15MG Oral Tablet 544152 15 MILLIGRAMS NEEDED DAILY ORAL 05/25/2023 14:41 Prescription Detail TAKE 15 MILLIGRAMS ORAL NEEDED DAILY Omeprazole 40MG Oral Capsule, Delayed Release 632170 40 MILLIGRAMS DAILY ORAL 14:41 Prescription Detail TAKE 40 MILLIGRAMS ORAL DAILY Ondansetron 4MG Oral Tablet, Disintegrating 579862 1 TABLET NEEDED EVERY 6 HOURS ORAL 04/06/2023 12:47 Prescription Detail TAKE 1 TABLET ORAL NEEDED EVERY 6 DOE RS FOR Nausea/Vomiting amLODIPine Besylate 5MG Oral Tablet 647388 5 MILLIGRAMS DAILY ORAL 023 09:50 Prescription Detail TAKE 5 MILLIGRAMS ORAL DAILY Imitrex 100MG Oral Tablet 689802 100 MILLIGRAMS NEEDED ORAL 023 09:50 Prescription Detail TAKE 100 MILLIGRAMS ORAL NEEDED LORazepam 1MG Oral Tablet 958852 0.5 MILLIGRAMS NEEDED TWICE DAILY ORAL 01/06/2023 09:50 Prescription Detail TAKE 0.5 MILLIGRAMS ORAL NEEDED TWICE DAILY Medications Administered During Visit Unknown or Not Available. Encounters Encounter Diagnosis Diagnosis Code Start Date Encounter for other specified aftercare [id number] 10/12/2021 Social History Smoking Status Code Start Date End Date Former smoker [id number] 07/10/2005 Patient Decision Aids Unknown or Not Available. Discharge Instructions You were admitted to [facility] on 10/12/2021 10:31 with a principal diagnosis of Encounter for other specified aftercare You were discharged from [facility] on 10/12/2021 11:28 Should you have any questions prior to [...]
--- OUTSIDE RECORDS SUMMARY | 2023-07-04 15:18 | XMS_ITS | CCD ---
Author Name Unknown Address [address] [place] [address] [id number] Organization Unknown Address [address] [place] [address] [phone] Care Team Providers Care Solderer Torch Name Role Phone TERESSA SIMMONS Attending Physician [phone] 3 СЕРГЕЙ MARCIAL Er Physician 6 [phone] CHACORTA JOSHUA (Secondary) Physicia n [phone] CHELA Hanson Registered Nurse [phone] Vital Signs Vital Sign Value Unit Date/Time Recent/Initial ? BMI (Body Mass Index) 27.8 kg/m^2 05/16/2023 19: 05 Initial VS Weight Measured 152 lbs 05/16/2023 19:05 Ini tial VS Height 62 in 05/16/2023 19:05 Initial VS BSA (Body Surface Area) 1.74 m^2 05/16/2023 1 9:05 Initial VS BP Systolic 207 mmHg 05/16/2023 19:05 Initial VS BP Diastolic 93 mmHg 05/16/2023 19:05 Initia l VS Respiratory Rate 18 bpm 05/16/2023 19:05 In itial VS Heart Rate 102 bpm 05/16/2023 19:05 Initial VS O2 % BldC Oximetry 95 % 05/16/2023 19:05 Initial VS Body Temperature 36.8 degrees 05/16/2023 19:05 In itial VS BMI (Body Mass Index) 29.74 kg/m^2 05/16/2023 23: 45 Most Recent VS Weight Measured 162.6 lbs 05/16/2023 23:45 Mos t Recent VS Height 62 in 05/16/2023 23:45 Most Rec ent VS BSA (Body Surface Area) 1.8 m^2 05/16/2023 2 3:45 Most Recent VS BP Systolic 151 mmHg 05/22/2023 19:57 Most Re cent VS BP Diastolic 75 mmHg 05/22/2023 19:57 Most R ecent VS Respiratory Rate 18 bpm 05/22/2023 19:[address] Recent VS Heart Rate 92 bpm 05/22/2023 19:57 Most Rec ent VS O2 % BldC Oximetry 95 % 05/22/2023 19:57 Most Recent VS Body Temperature 37.3 degrees 05/22/2023 19:[address] Recent VS Allergies Allergy Code Allergy Type Reaction Status CODEINE 0 Drug allergy UPSET STOMACH Active PCN (penicillin) 0 Drug allergy NAUSEA/VOMITING A ctive FLUOXETINE 4493 Drug allergy WEIGHT GAIN Active MELATONIN 6711 Drug allergy DIARRHEA Active Procedures Procedure Code Procedure Type Date Replace R Hip Jt, Acetab w Synth Sub, Cement, Open 0SR A0J9 ICD-10 PCS 05/17/2023 Anesthesia, Open Proc Involv ing Upper Two Thirds, Femur; NOS 03578 CPT 05/17/2023 History of Immunizations Immunization Code Date Pneumococcal conjugate PCV 13 133 COVID-19, mRNA, LNP-S, PF, 100 mcg/0.5mL dose or 50 mcg/0.25mL dose 207 08/05/2020 COVID-19, mRNA, LNP-S, PF, 100 mcg/0.5mL dose or 50 mcg/0.25mL dose 207 09/02/2020 Problems Problem Code Start Date Resolved Date Status GERD 460236953 Active Anxiety 29244681 Active HTN 76950775 Active RSV infection 69312933 Active Hypoxia 019675808 Active Cellulitis 103956960 Active Infectious colitis 31239887 05/16/2023 Resolv ed Stress fracture of left femo ral neck 20389075075410084 05/16/2023 Resolved Femoral neck fracture 8478786 06/23/2023 Res olved Hypokalemia 08606250 05/16/2023 Resolved Results BASIC METABOLIC PANEL (BMP) - Collect Date/Time: 05/22/2023 06:16 Test Name Code Test Result Test Units Test Ref Rang e GLUCOSE 2345-7 98 mg/dL L=70 H=116 BUN 3094-0 18 mg/dL L=6 H=25 CREATININE 2160-0 0.75 mg/dL L=0.51 H=0.95 SODIUM SERUM 2951-2 138 mmol/L L=136 H=145 POTASSIUM SERUM 2823-3 3.8 mmol/L L=3.4 H=5 .2 CHLORIDE SERUM 2075-0 104 mmol/L L=96 H=110 CARBON DIOXIDE (CO2) 2028-9 31 mmol/L L=22 H=34 ANION GAP 21495-2 2.8 mmol/L CALCIUM SERUM 57844-3 8.9 mg/dL L=8.2 H=10. 2 AGE 82 years eGFR (non-Afr.Amer.) 66910-6 74 mL/min eGFR (Afr-Lithuanian) 17538-9 90 mL/min BASIC METABOLIC PANEL (BMP) - Collect Date/Time: 05/20/2023 16:00 Test Name Code Test Result Test Units Test Ref Rang e GLUCOSE 2345-7 127 mg/dL L=70 H=116 BUN 3094-0 20 mg/dL L=6 H=25 CREATININE 2160-0 0.88 mg/dL L=0.51 H=0.95 SODIUM SERUM 2951-2 132 mmol/L L=136 H=145 POTASSIUM SERUM 2823-3 3.2 mmol/L L=3.4 H=5 .2 CHLORIDE SERUM 2075-0 97 mmol/L L=96 H=110 CARBON DIOXIDE (CO2) 2028-9 30 mmol/L L=22 H=34 ANION GAP 67657-9 5.5 mmol/L CALCIUM SERUM 68686-6 9.2 mg/dL L=8.2 H=10. 2 AGE 82 years eGFR (non-Afr.Amer.) 26602-7 62 mL/min eGFR (Afr-Lithuanian) 37332-3 75 mL/min BASIC METABOLIC PANEL (BMP) - Collect Date/Time: 05/17/2023 06:42 Test Name Code Test Result Test Units Test Ref Rang e GLUCOSE 2345-7 101 mg/dL L=70 H=116 BUN 3094-0 8 mg/dL L=6 H=25 CREATININE 2160-0 0.62 mg/dL L=0.51 H=0.95 SODIUM SERUM 2951-2 141 mmol/L L=136 H=145 POTASSIUM SERUM 2823-3 3.7 mmol/L L=3.4 H=5 .2 CHLORIDE SERUM 2075-0 107 mmol/L L=96 H=110 CARBON DIOXIDE (CO2) 2028-9 29 mmol/L L=22 H=34 ANION GAP 75022-5 5.1 mmol/L CALCIUM SERUM 38568-7 8.8 mg/dL L=8.2 H=10. 2 AGE 82 years eGFR (non-Afr.Amer.) 98458-3 93 mL/min eGFR (Afr-Lithuanian) 20332-3 112 mL/min BUN (UREA NITROGEN)* - Colle ct Date/Time: 05/18/2023 06:28 Test Name Code Test Result Test Units Test Ref Rang e BUN 3094-0 13 mg/dL L=6 H=25 COMPREHENSIVE METABOLIC PANE L (CMP) - Collect Date/Time: 05/16/2023 18:57 Test Name Code Test Result Test Units Test Ref Rang e GLUCOSE 2345-7 119 mg/dL L=70 H=116 BUN 3094-0 13 mg/dL L=6 H=25 CREATININE 2160-0 0.79 mg/dL L=0.51 H=0.95 SODIUM SERUM 2951-2 137 mmol/L L=136 H=145 POTASSIUM SERUM 2823-3 3.6 mmol/L L=3.4 H=5 .2 CHLORIDE SERUM 2075-0 102 mmol/L L=96 H=110 CARBON DIOXIDE (CO2) 2028-9 28 mmol/L L=22 H=34 ANION GAP 26917-0 7.3 mmol/L CALCIUM SERUM 30829-2 9.4 mg/dL L=8.2 H=10. 2 BILIRUBIN TOTAL 1975-2 0.5 mg/dL L=0.0 H=1 .3 ALK. PHOS. 6768-6 205 U/L L=46 H=116 SGOT (AST) 1920-8 23 U/L L=15 H=37 SGPT (ALT) 1742-6 14 U/L L=12 H=78 TOTAL PROTEIN 2885-2 7.7 gm/dL L=6.0 H=8.0 ALBUMIN 1751-7 3.5 gm/dL L=3.4 H=5.0 AGE 82 years eGFR (non-Afr.Amer.) 83274-6 70 mL/min eGFR (Afr-Lithuanian) 22783-5 85 mL/min CREATININE SERUM - Collect D ate/Time: 05/18/2023 06:28 Test Name Code Test Result Test Units Test Ref Rang e CREATININE 2160-0 0.77 mg/dL L=0.51 H=0.95 AGE 82 years eGFR (non-Afr.Amer.) 58463-9 72 mL/min eGFR (Afr-Lithuanian) 04724-6 87 mL/min ELECTROLYTES-COMPLETE - Yolande ect Date/Time: 05/18/2023 06:28 Test Name Code Test Result Test Units Test Ref Rang e SODIUM SERUM 2951-2 137 mmol/L L=136 H=145 POTASSIUM SERUM 2823-3 3.6 mmol/L L=3.4 H=5 .2 CHLORIDE SERUM 2075-0 101 mmol/L L=96 H=110 CARBON DIOXIDE (CO2) 2028-9 27 mmol/L L=22 H=34 ANION GAP 05697-5 9.5 mmol/L MAGNESIUM SERUM* - Collect D ate/Time: 05/17/2023 06:42 Test Name Code Test Result Test Units Test Ref Rang e MAGNESIUM 63567-1 2.0 mg/dL L=1.8 H=2.4 CBC W/ DIFFERENTIAL* - Colle ct Date/Time: 05/22/2023 06:16 Test Name Code Test Result Test Units Test Ref Rang e WBC 6690-2 5.56 th/cmm L=5.00 H=10.00 NEUT % 62.9 % L=40.0 H=80.0 LYMPH % 16.4 % L=10.0 H=50.0 MONO % 67629-7 11.3 % L=2.0 H=12.0 EOS % 8.5 % L=0.0 H=8.0 BASO % 0.5 % L=0.0 H=3.0 IG % 2514-8 0.4 % L=0.0 H=1.1 NRBC % 29301-2 0.0 % L=0.0 H=0.0 NEUT abs count 751-8 3.5 th/cmm L=1.6 H=8. 4 LYMPH abs count 731-0 0.9 th/cmm L=1.5 H=4 .0 MONO abs count 742-7 0.6 th/cmm L=0.2 H=1. 0 EOS abs count 711-2 0.5 th/cmm L=0.0 H=0.5 BASO abs count 704-7 0.0 th/cmm L=0.0 H=0. 2 IG abs count 19966-8 0.0 th/cmm L=0.0 H=0.1 NRBC abs count 56122-9 0.0 mil/cmm L=0.0 H=0. 0 RBC 789-8 3.62 mil/cmm L=3.90 H=5.40 HEMOGLOBIN 718-7 10.6 gm/dL L=12.0 H=16.0 HEMATOCRIT 4544-3 33 % L=37 H=47 MCV 787-2 92 fL L=82 H=92 MCH 785-6 29.3 pg L=27.0 H=31.0 MCHC 786-4 31.7 % L=32.0 H=36.0 RDW-SD 788-0 43.7 fL L=39.0 H=49.0 PLATELET COUNT 777-3 356 th/cmm L=150 H=45 0 CBC W/ DIFFERENTIAL* - [facility] ct Date/Time: 05/20/2023 16:00 Test Name Code Test Result Test Units Test Ref Rang e WBC 6690-2 11.53 th/cmm L=5.00 H=10.00 NEUT % 87.4 % L=40.0 H=80.0 LYMPH % 6.2 % L=10.0 H=50.0 MONO % 32612-2 5.5 % L=2.0 H=12.0 EOS % 0.3 % L=0.0 H=8.0 BASO % 0.2 % L=0.0 H=3.0 IG % 2514-8 0.4 % L=0.0 H=1.1 NRBC % 82151-4 0.0 % L=0.0 H=0.0 NEUT abs count 751-8 10.1 th/cmm L=1.6 H=8. 4 LYMPH abs count 731-0 0.7 th/cmm L=1.5 H=4 .0 MONO abs count 742-7 0.6 th/cmm L=0.2 H=1. 0 EOS abs count 711-2 0.0 th/cmm L=0.0 H=0.5 BASO abs count 704-7 0.0 th/cmm L=0.0 H=0. 2 IG abs count 15844-3 0.1 th/cmm L=0.0 H=0.1 NRBC abs count 69596-4 0.0 mil/cmm L=0.0 H=0. 0 RBC 789-8 4.04 mil/cmm L=3.90 H=5.40 HEMOGLOBIN 718-7 11.9 gm/dL L=12.0 H=16.0 HEMATOCRIT 4544-3 37 % L=37 H=47 MCV 787-2 91 fL L=82 H=92 MCH 785-6 29.5 pg L=27.0 H=31.0 MCHC 786-4 32.2 % L=32.0 H=36.0 RDW-SD 788-0 43.8 fL L=39.0 H=49.0 PLATELET COUNT 777-3 326 th/cmm L=150 H=45 0 CBC W/ DIFFERENTIAL* - [facility] ct Date/Time: 05/18/2023 06:28 Test Name Code Test Result Test Units Test Ref Rang e WBC 6690-2 13.55 th/cmm L=5.00 H=10.00 NEUT % 93.5 % L=40.0 H=80.0 LYMPH % 2.3 % L=10.0 H=50.0 MONO % 06729-1 3.5 % L=2.0 H=12.0 EOS % 0.1 % L=0.0 H=8.0 BASO % 0.2 % L=0.0 H=3.0 IG % 2514-8 0.4 % L=0.0 H=1.1 NRBC % 84666-0 0.0 % L=0.0 H=0.0 NEUT abs count 751-8 12.7 th/cmm L=1.6 H=8. 4 LYMPH abs count 731-0 0.3 th/cmm L=1.5 H=4 .0 MONO abs count 742-7 0.5 th/cmm L=0.2 H=1. 0 EOS abs count 711-2 0.0 th/cmm L=0.0 H=0.5 BASO abs count 704-7 0.0 th/cmm L=0.0 H=0. 2 IG abs count 77018-8 0.1 th/cmm L=0.0 H=0.1 NRBC abs count 40791-6 0.0 mil/cmm L=0.0 H=0. 0 RBC 789-8 4.11 mil/cmm L=3.90 H=5.40 HEMOGLOBIN 718-7 12.0 gm/dL L=12.0 H=16.0 HEMATOCRIT 4544-3 37 % L=37 H=47 MCV 787-2 91 fL L=82 H=92 MCH 785-6 29.2 pg L=27.0 H=31.0 MCHC 786-4 32.1 % L=32.0 H=36.0 RDW-SD 788-0 42.2 fL L=39.0 H=49.0 PLATELET COUNT 777-3 303 th/cmm L=150 H=45 0 CBC W/ DIFFERENTIAL* - [facility] ct Date/Time: 05/17/2023 06:42 Test Name Code Test Result Test Units Test Ref Rang e WBC 6690-2 5.33 th/cmm L=5.00 H=10.00 NEUT % 71.7 % L=40.0 H=80.0 LYMPH % 14.6 % L=10.0 H=50.0 MONO % 60447-3 8.8 % L=2.0 H=12.0 EOS % 3.9 % L=0.0 H=8.0 BASO % 0.6 % L=0.0 H=3.0 IG % 2514-8 0.4 % L=0.0 H=1.1 NRBC % 16454-5 0.0 % L=0.0 H=0.0 NEUT abs count 751-8 3.8 th/cmm L=1.6 H=8. 4 LYMPH abs count 731-0 0.8 th/cmm L=1.5 H=4 .0 MONO abs count 742-7 0.5 th/cmm L=0.2 H=1. 0 EOS abs count 711-2 0.2 th/cmm L=0.0 H=0.5 BASO abs count 704-7 0.0 th/cmm L=0.0 H=0. 2 IG abs count 81893-4 0.0 th/cmm L=0.0 H=0.1 NRBC abs count 79332-1 0.0 mil/cmm L=0.0 H=0. 0 RBC 789-8 3.99 mil/cmm L=3.90 H=5.40 HEMOGLOBIN 718-7 11.7 gm/dL L=12.0 H=16.0 HEMATOCRIT 4544-3 37 % L=37 H=47 MCV 787-2 93 fL L=82 H=92 MCH 785-6 29.3 pg L=27.0 H=31.0 MCHC 786-4 31.7 % L=32.0 H=36.0 RDW-SD 788-0 45.1 fL L=39.0 H=49.0 PLATELET COUNT 777-3 297 th/cmm L=150 H=45 0 CBC W/ DIFFERENTIAL* - Colle ct Date/Time: 05/16/2023 18:57 Test Name Code Test Result Test Units Test Ref Rang e WBC 6690-2 7.88 th/cmm L=5.00 H=10.00 NEUT % 77.3 % L=40.0 H=80.0 LYMPH % 12.2 % L=10.0 H=50.0 MONO % 43361-9 6.9 % L=2.0 H=12.0 EOS % 2.9 % L=0.0 H=8.0 BASO % 0.4 % L=0.0 H=3.0 IG % 2514-8 0.3 % L=0.0 H=1.1 NRBC % 91488-1 0.0 % L=0.0 H=0.0 NEUT abs count 751-8 6.1 th/cmm L=1.6 H=8. 4 LYMPH abs count 731-0 1.0 th/cmm L=1.5 H=4 .0 MONO abs count 742-7 0.5 th/cmm L=0.2 H=1. 0 EOS abs count 711-2 0.2 th/cmm L=0.0 H=0.5 BASO abs count 704-7 0.0 th/cmm L=0.0 H=0. 2 IG abs count 21055-3 0.0 th/cmm L=0.0 H=0.1 NRBC abs count 81900-3 0.0 mil/cmm L=0.0 H=0. 0 RBC 789-8 4.56 mil/cmm L=3.90 H=5.40 HEMOGLOBIN 718-7 13.4 gm/dL L=12.0 H=16.0 HEMATOCRIT 4544-3 42 % L=37 H=47 MCV 787-2 93 fL L=82 H=92 MCH 785-6 29.4 pg L=27.0 H=31.0 MCHC 786-4 31.7 % L=32.0 H=36.0 RDW-SD 788-0 45.6 fL L=39.0 H=49.0 PLATELET COUNT 777-3 347 th/cmm L=150 H=45 0 URINALYSIS WITH REFLEX CULT IF POSITIVE* - Collect Date/Time: 05/16/2023 20:49 Test Name Code Test Result Test Units Test Ref Rang e COLLECTION MODE: 54392-4 CASTILLO N/A Color 5778-6 YELLOW N/A yellow Appearance 5767-9 CLEAR N/A clear Glucose urine 66761-0 NEGATIVE N/A negative mg /dl Bilirubin 5770-3 NEGATIVE N/A negative Ketones 2514-8 TRACE N/A negative mg/dl Spec gravity 5811-5 1.010 N/A 1.003 - 1.03 0 pH urine 2756-5 7.0 N/A 5.0 - 7.0 Protein 64418-7 NEGATIVE N/A negative mg/dl Urobilinogen 80358-2 0.2 N/A <or= 1 EU/dl Nitrite. 5802-4 NEGATIVE N/A negative Blood 5794-3 TRACE-IN N/A negative Leukocytes. NEGATIVE N/A negative MICROSCOPIC INDICATED N/A WBCs. 98030-8 0-5 N/A 0-5 / hpf RBCs 99756-2 0-5 N/A 0-5 / hpf Epith cells 52142-0 0-5 N/A 0-5 / hpf Cell types squamous N/A Crystals none N/A none Bacteria moderate N/A none Mucus 8247-9 none N/A none Casts 86455-5 none N/A none /lpf TYPE AND SCREEN* - Collect D ate/Time: 05/16/2023 19:57 Test Name Code Test Result Test Units Test Ref Rang e Blood Group 883-9 O N/A Rh (D) 12674-2 POSITIVE N/A Antibody Screen 1005-8 NEGATIVE N/A Active Medications Medication Code Dose Units Frequency Route Modificatio n Start Date/Time CALCIUM CARBONATE TAB CHEWABLE UD: 500MG 016243 8364 MG PRN Q2H CHEW 05/20/2023 21:23 POTASSIUM CHL TABLET: 20mEq 7073365 20 MEQ BID WITH FOOD PO 20:04 ACETAMINOPHEN TABLET: 325MG 387564 975 MG TID PO 2022 15:44 ONDANSETRON TABLET ORAL DISINTEGRAT: 4MG 674194 4 MG PRN Q6H PO 05/18/2023 18:39 MELOXICAM TAB: 7.5MG 085126 7.5 MG DAILY WITH FOOD PO 05/18/2023 18:00 RIVAROXABAN TAB: 10MG 4983070 10 MG Q5PM PO 05/18/2023 17:00 OxyCODONE TABLET no apap added: 5mg 6042559 5 MG PRN Q4H PO 02/2023 23:31 TraMADol TABLET: 50MG 602254 50 MG PRN Q6H PO 05/17/2023 23:31 PANTOPRAZOLE TABLET: 40MG 585679 40 MG Q7AM PO 023 09:48 AmLODIPine TABLET: 5MG 427154 5 MG DAILY PO 05/16/2023 21:38 LORazepam TABLET: 0.5MG 287043 0.5 MG PRN BID PO 05/16/2023 21:38 SUMAtriptan TABLET: 50MG 753728 100 MG PRN DAILY PO 05/16/2023 21:38 ACETAMINOPHEN INJ IVPB: 1000MG/100ML 956860 PRN Q6H IVPB 1 07/16/2022 21:33 ~~ ACETAMINOPHEN INJ IVPB: 1000MG/100ML 746027 7076 MG BISACODYL SUPPOSITORY: 10MG 979904 10 MG PRN DAILY [place] 21:33 HYDROmorphone INJ SYRINGE: 0.5MG/0.5ML 6270341 0.5 MG PRN Q1H IVP 05/16/20 21:33 MILK OF MAGNESIA SUSP UD: 2400MG/30ML 504230 30 ML PRN DAILY PO 05/16/20 21:33 ONDANSETRON INJ SDV: 4MG/2ML 5007655 4 MG PRN Q4H IVP 023 21:33 POLYETHYLENE GLYCOL PACKET 3350:17GM 678273 17 GRAMS PRN DAILY PO 01/2023 21:33 SENNA CONC TABLET: 8.6MG 237982 8.6 MG PRN DAILY PO 05/16/2023 21:33 Medications Administered During Visit Medication Dose Units Frequency Route Date/Time of Last Dose FentaNYL INJ SYRINGE: 50MCG/ML 25 MCG X1 IVP 05/16/2023 19:0 8 FentaNYL INJ SYRINGE: 50MCG/ML 25 MCG X1 IVP 05/16/2023 19:3 2 HYDROmorphone INJ SYRINGE: 0.5MG/0.5ML 0.5 MG X1 IVP 05/16/2023 20:1 3 DIAZEPAM INJ SYRINGE: 10MG/2ML 2.5 MG X1 IVP 05/16/2023 20:1 3 HYDROmorphone INJ SYRINGE: 0.5MG/0.5ML 1 MG X1 IVP 05/16/2023 21:1 8 SENNA CONC TABLET: 8.6MG 8.6 MG PRN DAILY PO 05/22/2023 08:32 POLYETHYLENE GLYCOL PACKET 3350:17GM 17 GRAMS PRN DAILY PO 05/22/2023 08:3 3 SODIUM CHLORIDE 0.9% 1000ML 1000 ML CONT IV 05/17/2023 11:15 ACETAMINOPHEN INJ IVPB: 1000MG/100ML 1000 MG PRN Q6H IVPB 05/18/2023 03:5 4 HYDROmorphone INJ SYRINGE: 0.5MG/0.5ML 0.5 MG PRN Q1H IVP 05/18/2023 10:0 3 ONDANSETRON INJ SDV: 4MG/2ML 4 MG PRN Q4H I CRAPS DEALER 05/18/2023 07:42 PANTOPRAZOLE INJ SDV: 40MG 40 MG DAILY IVP 05/17/2023 08:13 SUMAtriptan TABLET: 50MG 100 MG PRN DAILY PO 05/20/2023 13:45 LORazepam TABLET: 0.5MG 0.5 MG PRN BID PO 05/22/2023 18:49 LISINOPRIL TABLET: 20MG 20 MG DAILY PO 05/17/2023 08:13 AmLODIPine TABLET: 5MG 5 MG DAILY PO 05/22/2023 08:32 PANTOPRAZOLE TABLET: 40MG 40 MG Q7AM PO 05/22/2023 06:36 CeFAZolin IVPB FROZEN PREMIX : 2GM/100ML 2 GM X1 IVPB 05/17/2023 21:2 5 DEXTROSE 5% AND NACL 0.45% 1000ML 125 ML CONT IV 05/18/2023 01:4 6 RIVAROXABAN TAB: 10MG 10 MG Q5PM PO 05/22/2023 18:49 DexAMETHasone INJ SDV PF: 10MG/1ML 10 MG X1 IVP 05/18/2023 01:1 1 KETOROLAC INJ SDV: 30MG/1ML 15 MG Q6H IV P 05/18/2023 11:44 MELOXICAM TAB: 7.5MG 7.5 MG DAILY WITH FOOD PO 05/22/2023 18:49 TraMADol TABLET: 50MG 50 MG PRN Q6H PO 05/18/2023 15:06 OxyCODONE TABLET no apap added: 5mg 5 MG PRN Q4H PO 05/22/2023 14:4 5 ONDANSETRON TABLET ORAL DISINTEGRAT: 4MG 4 MG PRN Q6H PO 05/21/2023 23:40 ACETAMINOPHEN TABLET: 325MG 975 MG X1 PO 05/20/2023 16:30 ACETAMINOPHEN TABLET: 325MG 975 MG TID PO 05/22/2023 14:45 POTASSIUM CHL TABLET: 20mEq 20 MEQ BID WITH DONELL D PO 05/22/2023 18:49 POTASSIUM CHL TABLET: 20mEq 20 MEQ X1 PO 05/20/2023 21:07 CALCIUM CARBONATE TAB CHEWABLE UD: 500MG 1000 MG PRN Q2H CHEW 21:27 LISINOPRIL TABLET: 20MG 20 MG X1 PO 05/22/2023 18:54 Encounters Encounter Diagnosis Diagnosis Code Start Date Displaced fracture of base o f neck of left femur, initial encounter for closed fracture [id number] 05/16/2023 Social History Smoking Status Code Start Date End Date Former smoker [id number] 1967 07/10/2005 Patient Decision Aids Unknown or Not Available. Discharge Instructions You were admitted to on 05/16/2023 21:33 with a principal diagnosis of Hip Fracture/Dislocation You had the following procedures done:Replace R Hip Jt, Acetab w Synth Sub, Cement, OpenAnesthesia, Open Proc Involving Upper Two Thirds, Femur; NOS You had the following tests done:BASIC METABOLIC PANEL (BMP)CBC W/ DIFFERENTIAL*BASIC METABOLIC PANEL (BMP)CBC W/ DIFFERENTIAL*BUN (UREA NITROGEN)*CBC W/ DIFFERENTIAL*CREATININE SERUMELECTROLYTES-COMPLETEBASIC METABOLIC PANEL (BMP)CBC W/ DIFFERENTIAL*MAGNESIUM SERUM*URINALYSIS WITH REFLEX CULT IF POSITIVE*TYPE AND SCREEN*CBC W/ DIFFERENTIAL*COMPREHENSIVE METABOLIC PANEL (CMP) You were discharged from on 05/22/2023 17:30 Should you have any questions prior to discharge, please contact a member of your healthcare team. If you have left the hospital and have any questions, please contact your primary care physician. Chief Complaint and Reason For Visit Chief Complaint Date of Onset LEFT FEMORAL NECK FRACTURE 05/16/2023 Function Status Unknown or Not Available. Plan of Care Unknown or Not Available. Referral/Transition of Care Unknown or Not Available.
--- OUTSIDE RECORDS SUMMARY | 2023-07-04 15:19 | XMS_ITS | CCD ---
Author Name Unknown Address [address] [place] [address] [phone] Organization Unknown Address [address] [place] [place] [address] [phone] Care Team Providers Care General Magistrate Name Role Phone GENARO BROWN Attending Physician [phone] Vital Signs Unknown or Not Available. Allergies Allergy Code Allergy Type Reaction Status CODEINE 0 Drug allergy UPSET STOMACH Active Procedures Unknown or Not Available. History of Immunizations Immunization Code Date Pneumococcal conjugate PCV 13 133 COVID-19, mRNA, LNP-S, PF, 100 mcg/0.5mL dose or 50 mcg/0.25mL dose 207 08/05/2020 COVID-19, mRNA, LNP-S, PF, 100 mcg/0.5mL dose or 50 mcg/0.25mL dose 207 09/02/2020 Problems Problem Code Start Date Resolved Date Status GERD 193915538 Active Anxiety 04183802 Active HTN 07051908 Active RSV infection 14860065 Active Hypoxia 943863451 Active Cellulitis 021056664 Active Anxiety 56656979 01/03/2023 Resolved Infectious colitis 65658782 01/03/2023 Resolv ed Depression 62257843 01/03/2023 Resolved GERD 833108245 01/03/2023 Resolved Acute ischemic colitis (disorder) 18736600 Resolved OTHER SPECIFIED GENITAL PROLAPSE 64831079 Resolved Acute respiratory failure wi th hypoxia 13003679 01/03/2023 Resolved Infectious colitis 65243784 05/16/2023 Resolv ed Stress fracture of left femo ral neck [id number] 05/16/2023 Resolved Femoral neck fracture 5384915 06/23/2023 Res olved Hypokalemia 64924187 05/16/2023 Resolved CYSTOCELE, MIDLINE 507439264 01/03/2023 Resolv ed RECTOCELE [id number] 01/03/2023 Resolved FEMALE STRESS INCONTINENCE 46883337 3 Resolved Other closed fractures of di stal end of radius (alone) 34113867 01/03/2023 Resolved HTN 59632430 01/03/2023 Resolved Results Unknown or Not Available. Active Medications Medication Code Dose Units Frequency Route Modificatio n Start Date/Time Keflex 500MG Oral Capsule 552019 1 CAPSULE FOUR TIMES A DAY ORAL 06/23/2023 13:48 Prescription Detail TAKE 1 CAPSULE ORAL FOUR TIMES A DAY X5 DAYS Potassium Chloride 20MEQ Oral Tablet, Extended Release 3495604 20 MEQ DAILY ORAL 13:47 Prescription Detail TAKE 20 MEQ ORAL DAILY Lisinopril 20MG Oral Tablet 815456 40 MILLIGRAMS DAILY ORAL 023 13:42 Prescription Detail TAKE 40 MILLIGRAMS ORAL DAILY Xarelto 10MG Oral Tablet 0197019 1 TABLET DAILY ORAL 05/25/20 16:02 Prescription Detail TAKE 1 TABLET ORAL DAILY AT 5 PM oxyCODONE HCl 5MG Oral Tablet 1161099 5 MILLIGRAMS NEEDED ORAL 14:42 Prescription Detail TAKE 5 MILLIGRAMS ORAL NEEDED Acetaminophen 500MG Oral Capsule 785528 2 TABLET NEEDED EVERY 6 HOURS ORAL 05/25/2023 14:41 Prescription Detail TAKE 2 TABLET ORAL NEEDED EVERY 6 DOE RS Meloxicam 15MG Oral Tablet 579845 15 MILLIGRAMS NEEDED DAILY ORAL 05/25/2023 14:41 Prescription Detail TAKE 15 MILLIGRAMS ORAL NEEDED DAILY Omeprazole 40MG Oral Capsule, Delayed Release 840730 40 MILLIGRAMS DAILY ORAL 14:41 Prescription Detail TAKE 40 MILLIGRAMS ORAL DAILY Ondansetron 4MG Oral Tablet, Disintegrating 817592 1 TABLET NEEDED EVERY 6 HOURS ORAL 04/06/2023 12:47 Prescription Detail TAKE 1 TABLET ORAL NEEDED EVERY 6 DOE RS FOR Nausea/Vomiting amLODIPine Besylate 5MG Oral Tablet 940781 5 MILLIGRAMS DAILY ORAL 023 09:50 Prescription Detail TAKE 5 MILLIGRAMS ORAL DAILY Imitrex 100MG Oral Tablet 686577 100 MILLIGRAMS NEEDED ORAL 023 09:50 Prescription Detail TAKE 100 MILLIGRAMS ORAL NEEDED LORazepam 1MG Oral Tablet 952390 0.5 MILLIGRAMS NEEDED TWICE DAILY ORAL 01/06/2023 09:50 Prescription Detail TAKE 0.5 MILLIGRAMS ORAL NEEDED TWICE DAILY Medications Administered During Visit Unknown or Not Available. Encounters Encounter Diagnosis Diagnosis Code Start Date Encounter for other specified aftercare [id number] 03/30/2021 Social History Smoking Status Code Start Date End Date Former smoker [id number] 1967 07/10/2005 Patient Decision Aids Unknown or Not Available. Discharge Instructions You were admitted to [facility] on 03/30/2021 14:22 with a principal diagnosis of Encounter for other specified aftercare You were discharged from [facility] on 03/30/2021 13:56 Should you have any questions prior to [...]
[2023-07-04 17:21] LABS: Anion Gap 9.5 mmol/L (3-11); BUN 10 mg/dL (7-18); CO2 25.5 mmol/L (21.0-32.0); CREATININE 0.8 mg/dL (0.55-1.02); Calcium 9.3 mg/dL (8.5-10.1); Chloride 107 mmol/L (98-107); Estimated GFR 74.44 (mL/min/1.73m2); Glucose 132 mg/dL (74-106); Potassium 3.6 mmol/L (3.5-5.1); Sodium 142 mmol/L (136-145)
== END 2023-07-04 15:14 | disposition home or self-care (01) ==
LOC: NCHCN 15:13
PROVIDERS: PCP Family Medicine; Visit Provider Family Medicine
DX: E87.6 Hypokalemia (principal); J96.01 Acute respiratory failure with hypoxia; B97.4 Respiratory syncytial virus as the cause of diseases classified elsewhere
CPT/HCPCS: 80048

== ENCOUNTER 2024-06-03 12:16 | Outpatient (REF) | payer BC, SELFPAY ==
--- NOTE | 2024-06-03 10:45 | SKI_PTH ---
PATIENT: Dulce Maria Corona LOC: [facility] U#:[id number] AGE/SX: 83/F ROOM: RE06/03/[address]: Sabrina Tabares : 1940 BED: DIS: 06/03/2024 SPEC #: [id number] RECD: 06/03/24 17:38 STATUS: TEQUILA REIona #: [id number] HANNA: 06/03/24 10:[address]: Sabrina Tabares DEPT: Surgical Specimen RECD BY: Lucy Bonilla Tissues: 1 - SKIN BIOPSY(SHAVE/PUNCH) Procedures: SKIN LEVEL 4 Comments: [id number]
[2024-06-03 17:29] LABS: BUN 10 mg/dL (7-18); CREATININE 0.9 mg/dL (0.55-1.02); Calcium 10.3 mg/dL (8.5-10.1); Calculated LDL 99 mg/dL (<100); Chloride 107 mmol/L (98-107); Cholesterol 204 mg/dL (<200); Estimated GFR 64.23 (mL/min/1.73m2); Glucose 103 mg/dL (74-106); HDL Cholesterol 77 mg/dL (40-60); Potassium 4.1 mmol/L (3.5-5.1); Sodium 143 mmol/L (136-145); Triglyceride 142 mg/dL (<150)
[2024-06-03 17:37] LABS: Anion Gap 9.9 mmol/L (3-11); CO2 26.1 mmol/L (21.0-32.0)
== END 2024-06-03 12:17 | disposition home or self-care (01) ==
LOC: NCHCN 12:16
PROVIDERS: PCP Family Medicine; Visit Provider Family Medicine
DX: I10 Essential (primary) hypertension (principal); E78.5 Hyperlipidemia, unspecified
CPT/HCPCS: 80048; 80061; 88305

== ENCOUNTER 2025-03-27 20:27 | Outpatient (REF) | payer BC, SELFPAY ==
[2025-04-01 13:51] LABS: Helicobacter pylori Ag, Feces Negative (Negative)
== END 2025-03-27 20:28 | disposition home or self-care (01) ==
LOC: NCHCN 20:27
PROVIDERS: PCP Family Medicine; Visit Provider Family Medicine
DX: K21.9 Gastro-esophageal reflux disease without esophagitis (principal)
CPT/HCPCS: 87338